=== PATIENT | female | born 1950 | race Caucasian/White ===

== ENCOUNTER 2024-05-26 11:11 | Outpatient (CLI) | payer MEDICARE, SELFPAY ==
--- NOTE | ~2024-05-26 | MR_ITS ---
MRI of the left knee Clinical history: Effusion Technique: Coronal proton density and proton density-weighted images, sagittal proton-density and T2 fat-sat images, and axial proton-density fat-saturated images were acquired. Findings: Anterior and posterior cruciate ligaments are intact. Medial collateral ligament and the la teral collateral ligament complex are intact. Popliteus tendon is intact. There is extensive complex tearing of the posterior horn and body of the medial meniscus. No lateral meniscal tear evident. There is extensive high-grade chondromalacia of the patellar apex extending to the medial facet. Ther e is high-grade chondromalacia extensive involving the medial femoral condyle and the medial aspect o f the medial tibial plateau. There is focal moderate chondral malacia the lateral joint line. Mild tr icompartment osteophyte formation present. Extensor mechanism is intact. Moderate to large joint effusion present. Small Austin cyst present. Impression: Extensive complex tearing of the posterior horn and body of medial meniscus. Moderate to advanced tricompartmental osteoarthritis, especially the medial compartment, as detailed above. Moderate to large joint effusion with small Austin's cyst. Reviewed, dictated and finalized at location . EY DIRECTOR Impression: Extensive complex tearing of the posterior horn and body of medial meniscus. Moderate to advanced tricompartmental osteoarthritis, especially the medial com partment, as detailed above. Moderate to large joint effusion with small Austin's cyst.
== END 2024-05-26 11:12 | disposition home or self-care (01) ==
PROVIDERS: PCP Physician Assistant Surgical; Visit Provider Physician Assistant Surgical
DX: M25.462 Effusion, left knee (principal); M17.12 Unilateral primary osteoarthritis, left knee; S83.232A Complex tear of medial meniscus, current injury, left knee, initial encounter; M71.22 Synovial cyst of popliteal space [Baker], left knee; X58.XXXA Exposure to other specified factors, initial encounter
CPT/HCPCS: 73721

== ENCOUNTER 2024-06-03 08:20 | Outpatient (CLI) | payer MEDICARE, SELFPAY ==
--- NOTE | ~2024-06-03 | XR_ITS ---
EXAMINATION: XR knee LT min 4V DATE: 06/03/2024 08:40 INDICATION: Unilateral primary osteoarthritis, left knee. TECHNIQUE: 4 views of left knee were obtained. COMPARISON: None. FINDINGS: Alignment is normal. No fracture. There is moderate osteoarthritis of medial compartment an d mild osteoarthritis of patellofemoral compartment. There is a small knee joint effusion. IMPRESSION: 1. Moderate left knee osteoarthritis. 2. Small left knee joint effusion. Reviewed, dictated and finalized at location A. [facility]
--- OUTSIDE RECORDS SUMMARY | 2024-06-03 08:47 | XMS_ITS | Clinical Summary ---
Author Organization [facility] Address [address], [place] [address] Phone Care Team Providers Care Coat Joiner Lockstitch Name Role Phone MARK MALDONADO MD Primary Care Provider [phone] Reason for Visit and Chief Complaint * PHONE CALL Problems Includes: Problems addressed during this encounter and other active Problems All Visits Onset Date Resolved Date Provider Condition S tatus Osteopenia 01/11/2014 CYNDY MOLINA NP-BC Active Last Documented On 12/25/2019 10:40AM ; [facility] Note: DEXA 12-22-2019 Tobacco Use 01/09/2013 CYNDY MOLINA NP-BC Active Last Documented On 3 8:16AM ; [facility] Plan of Treatment No Plan of Treatment Recorded Assessments Includes: Assessments from this encounter No Assessments Recorded Medical Equipment - Implanted Devices Includes: Current Devices No Medical Equipment Recorded Medications Includes: Medications discussed during this encounter and other current Medications No Medications Taken Medications Administered Includes: Administered Medications from this encounter No Administered Medications Recorded Results Includes: Results discussed during this encounter No Results Recorded For Specified Dates History of Present Illness Includes: History of Present Illness from this encounter No History of Present Illness Recorded Social History No Social History Recorded - Smoking Status Unknown Medical History Includes: Medical History addressed during this encounter No Medical History Recorded Family History Includes: Family History addressed during this encounter No Family History Recorded Review of Systems Includes: Review of Systems from this encounter No Review of Systems Recorded Mental Status Includes: Mental Status from this encounter No Mental Status Recorded Functional Status Includes: Functional Status from this encounter No Functional Status Recorded Physical Exam Includes: Physical Exam from this encounter No Physical Exam Recorded Allergies Includes: Active Allergies No Known Allergies Encounters Encounter Provider Location Date Check-In Time Check-Out Time Diagnosis * PHONE CALL CYNDY MOLINA [facility] 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
--- OUTSIDE RECORDS SUMMARY | 2024-06-03 08:47 | XMS_ITS | Clinical Summary ---
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 Name Role Phone MARK MALDONADO MD Primary Care Provider [phone] Reason for Visit and Chief Complaint gynecologic annual exam - The Chief Complaint is: Annual Problems Includes: Problems addressed during this encounter and other active Problems All Visits Onset Date Resolved Date Provider Condition S tatus Osteopenia 01/11/2014 CYNDY MOLINA NP-BC Active Last Documented On 12/25/2019 10:40AM ; [facility] Note: DEXA done 12-22-2019 Tobacco Use 01/09/2013 CYNDY MOLINA NP-BC Active Last Documented On 3 8:16AM ; [facility] Plan of Treatment - Follow-up visit 1 year or as needed - Last Documented On 12/25/2019 10:53AM ; [facility] - Clinical summary provided to patient - Last Documented On 12/25/2019 10:53AM ; [facility] Pending Tests Order Diagnosis Results Due Ordering Erika rocha In office procedures - *Clia Waived Labs *FOBT* Fecal Occult Blood Test Encounter for screening for malignant neoplasm of rectum 01/08/20 CYNDY MOLINA NP-BC Last Documented On 1 4:15PM ; [facility] Instructions to patient Instructions for patient : B reast Self Exam discussed Last Documented On 0 10:34AM ; [facility] Lose weight Last Documented On 0 10:35AM ; [facility] Colonoscopy Handout given to patient Last Documented On 0 10:35AM ; [facility] Education and Decision Aids were provided during visit for: Patient Education: Daily mekhi cium and vitamin D Last Documented On 0 10:34AM ; [facility] Patient Education: weight be aring exercise Last Documented On 0 10:34AM ; [facility] Assessments Includes: Assessments from this encounter Findings - NORMAL FEMALE EXAM [Z01.419 - Encounter for gynecological examination (general) (routine) without abnormal findings] - Last Documented On 12/25/2019 10:53AM ; [facility] - Screening Malig. Neoplasm Rectum [Z12.12 - Encounter for screening for malignant neoplasm of rectum] - Last Documented On 12/25/2019 10:53AM ; [facility] Instructions Includes: Instructions from this encounter Instructions to patient Instructions for patient : B reast Self Exam discussed Last Documented On 0 10:34AM ; [facility] Lose weight Last Documented On 0 10:35AM ; [facility] Colonoscopy Handout given to patient Last Documented On 0 10:35AM ; [facility] Education and Decision Aids were provided during visit for: Patient Education: Daily mekhi cium and vitamin D Last Documented On 0 10:34AM ; [facility] Patient Education: weight be aring exercise Last Documented On 0 10:34AM ; [facility] Medical Equipment - Implanted Devices Includes: Current Devices No Medical Equipment Recorded Medications Includes: Medications discussed during this encounter and other current Medications Discontinued / Stopped on this date on 12/12/2015 Estrace 0.1 MG/GM Cream Provider: Diagnosis: Last Documented On 0 10:39AM By TIMOTEO ROSAS ; [facility] Medications Administered Includes: Administered Medications from this encounter No Administered Medications Recorded Vital Signs Includes: Vital Signs from this encounter Vital Name 12/25/2019 10:37A 12/25/2019 10: 31A Blood Pressure Sitting L 118/66 118/60 BP Cuff Size Regular Regular Temp-Oral (F) 97.9 Height (in) 65 Weight (lb) 177 Body Mass Index (kg/m2) 29.5 Body Surface Area (m2) 1.9 Last Documented: On 12/25/2019 10:37A M ; [facility] On 12/25/2019 10:35AM ; [facility] Results Includes: Results discussed during this encounter No Results Recorded For Specified Dates History of Present Illness Includes: History of Present Illness from this encounter DALE DENNY is a 69 year old female. - Allergy list reviewed - Medication reconciliation performed - Medication list reviewed - PRIMARY CARE PROVIDER : Dr Hoff Social History Description Last Updated Alcohol use occ 12/25/2019 Last Documented On 0 10:53AM ; [facility] Cigarette smoking 12/25/2019 Last Documented On 0 10:53AM ; [facility] Not using drugs 12/25/2019 Last Documented On 0 10:53AM ; [facility] Smoking status : Current some day smoker 12/25/2019 Last Documented On 0 10:53AM ; [facility] Social history unchanged 02/08/2017 Last Documented On 0 10:29AM ; [facility] Procedures and Surgical History Includes: Procedures from this encounter Procedures Code Diagnosis Performing Provider Service L ocation Service Date low fat diet Last Documented On 0 10:35AM ; [facility] Preventive Medicine Services (medicare pt) G0101 Last Documented On 0 10:35AM ; [facility] Pap smear done 20320 Last Documented On 0 10:35AM ; [facility] fecal occult blood test was negative 95910 Last Documented On 0 10:34AM ; [facility] Cervical Pap Smear performed Q0091 Last Documented On 0 10:35AM ; [facility] Surgical History Last Updated Surgical / procedural history rt Carpal Tunnel Surgery 01/11/2014 Last Documented On 0 10:29AM ; [facility] History of tubal ligation 01/09/2013 Last Documented On 0 10:29AM ; [facility] Medical History Includes: Medical History addressed during this encounter Description Last Updated Sexually active 12/25/2019 Last Documented On 0 10:53AM ; [facility] No recent change in medical history 07/2019 Last Documented On 0 10:53AM ; [facility] History of a DXA of the late ral lumbar spine was performed 12/22/[address] Hoff at the end of the month to talk about rx for the thining of her bones 12/25/2019 Last Documented On 0 10:53AM ; [facility] History of complete colonosc opy Dr Hoff ordered a colongaurd has not recieved it yet 12/25/2019 Last Documented On 0 10:53AM ; [facility] History of screening mammogram was perfo rmed 2019 [facility] 12/25/2019 Last Documented On 0 10:53AM ; [facility] History of Pap smear done 02/08/201707/2019 Last Documented On 0 10:53AM ; [facility] Result: normal 12/25/2019 Last Documented On 0 10:53AM ; [facility] Result: normal 12/25/2019 Last Documented On 0 10:53AM ; [facility] LMP: 199203/27/2011 Last Documented On 0 10:29AM ; [facility] Status post tubal ligation 1985 03/27/20 11 Last Documented On 0 10:29AM ; [facility] 3 03/27/2011 Last Documented On 0 10:29AM ; [facility] Para 3 03/27/2011 Last Documented On 0 10:29AM ; [facility] History of menopause 03/24/2010 Last Documented On 0 10:29AM ; [facility] Family History Includes: Family History addressed during this encounter Description Last Updated Family history unchanged 12/25/2019 Last Documented On 0 10:53AM ; [facility] Maternal history of hypertension mother late in life 12/25/2019 Last Documented On 0 10:53AM ; [facility] Paternal history of diabetes mellitus fa ther at age 84 12/25/2019 Last Documented On 0 10:53AM ; [facility] father at age 85 pancreatic ca 4 Last Documented On 0 10:29AM ; [facility] Spouse name: Matt 01/09/2013 Last Documented On 0 10:29AM ; [facility] Family history of Cancer 06/27/2009 Last Documented On 0 10:29AM ; [facility] Family history of thyroid disease 2009 Last Documented On 0 10:29AM ; [facility] Review of Systems Includes: Review of Systems from this encounter Gastrointestinal: No pelvic pain. Genitourinary: No postmenopausal bleeding. No vaginal discharge. 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 Neoplasm Rectum,Normal Female Exam Insurance Includes: Active Insurance Policies Plan Name Member ID Group # Subscriber Relationship Effect jeremiah Dates 1 - MEDICARE PART A CLAIMS/NGS [id number] ELVA Kraus 2 - [employer] [id number] PLAN G ELVA Kraus Clinical Notes Includes: Clinical Notes from this encounter No Clinical Notes Recorded
--- OUTSIDE RECORDS SUMMARY | 2024-06-03 08:47 | XMS_ITS | Encounter Summary ---
Author Organization [facility] Address [address] [place] [address] Phone Care Team Providers Care Planning Specialist Name Role Phone Kavya Davis MD Primary Care Provider Korin Coughlin Primary Care Provider + Reason for Visit * Reason Onset Date Comments Referral 02/01/2023 Encounter Details Date Type Department Care Team (Late st Contact Info) Description 02/01/2023 Telephone [facility]erral [facility] [address] [place] [address] Kavya Davis MD [address] [place] [address] Referral Social History Tobacco Use Types Packs/Day Years Used Date Smoking Tobacco: Former Cigarettes Q uit: 2020 Smokeless Tobacco: Never Comments:socially Alcohol Use Standard Drinks/Week Comments Yes 0 (1 standard drink = 0.6 oz pure alcohol) Likes to have a drink once in a while after PHQ-2 Answer Date Recorded Total Score - Questions 1-9 0 04/23 Education Answer Date Recorded What is the highest level of school you have completed or the highest degree you have received? Some college, no degree 07/05/2022 Sexually Active Control Partners Comments Yes Male Comments No Sex and Gender Information Value Date Recorded Sex Assigned at Not on file Legal Sex Female 10:30 PM CDT Gender Identity Not on file Sexual Orientation Not on file documented as of this encounter Miscellaneous Notes * Telephone Encounter - Sonja Fernandez RMA - 02/05/2023 1:31 PM CDT Spoke with patient, she states she has already heard from them for referral. 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 BACKGROUND: Referral was processed. ASSESSMENT: Request for provider review due to the following reason(s): Patient refusal or unable to contact patient. RECOMMENDATION: Based on the above information the provider has the following option(s): This referral has been processed & faxed. However, we were unable to contact the patient regarding location information. Patient did not read the Fylet message nor did they respond to voice messages. Thank you. Leandra Garcia [facility] - Referrals opt 7 documented in this encounter Plan of Treatment Upcoming Encounters Date Type Department Care Team (Late st Contact Info) Description 09/04/2024 9:15 AM CDT Office Visit [facility] - Family [facility] [address] [place] [address] Korin Coughlin, PAC [address] [place] [address] documented as of this encounter Visit Diagnoses Not on filedocumented in this encounter Additional Health Concerns Assessment Noted Time PHQ-9 Depression Total Score: 0 08/31/19 21 2:00 PM CDT documented as of this encounter Care Teams Planning Specialist Relationship Specialty Start Date End Date Kavya Davis MD [address] [place] [address] PCP - General Family Medicine 12/23/18 09/03/23 Korin Coughlin PAC [address] [place] [address] PCP - General Physician Personnel Director 09/04/23 documented as of this encounter
--- OUTSIDE RECORDS SUMMARY | 2024-06-03 08:47 | XMS_ITS | Clinical Summary ---
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 Name Role Phone MARK MALDONADO MD Primary Care Provider [phone] Reason for Visit and Chief Complaint gynecologic annual exam - The Chief Complaint is: Annual Problems Includes: Problems addressed during this encounter and other active Problems All Visits Onset Date Resolved Date Provider Condition S tatus Osteopenia 01/11/2014 CYNDY MOLINA [facility] Active Last Documented On 12/25/2019 10:40AM ; [facility] Note: DEXA done 12-22-2019 Tobacco Use 01/09/2013 CYNDY MOLINA [facility] Active Last Documented On 3 8:16AM ; [facility] Plan of Treatment - Follow-up visit 1 year or as needed - Last Documented On 02/02/2016 3:53PM ; [facility] - Clinical summary provided to patient - Last Documented On 02/02/2016 3:53PM ; [facility] Had calcium and alk. phos. with pcp - see results in chart. Will have vitamin D and PTH today to complete dexa labs. - Last Documented On 02/02/2016 3:53PM ; [facility] Instructions to patient Instructions for patient : B reast Self Exam discussed Last Documented On 6 3:22PM ; [facility] Lose weight Last Documented On 6 3:23PM ; [facility] Colonoscopy Handout given to patient Last Documented On 6 3:23PM ; [facility] Education and Decision Aids were provided during visit for: Patient Education: Daily mekhi cium and vitamin D Last Documented On 6 3:22PM ; [facility] Patient Education: weight be aring exercise Last Documented On 6 3:22PM ; [facility] Smoking cessation advised Last Documented On 6 3:23PM ; [facility] Assessments Includes: Assessments from this encounter Findings - NORMAL FEMALE EXAM - Last Documented On 02/02/2016 3:53PM ; [facility] - Screening Malig. Neoplasm Rectum - Last Documented On 02/02/2016 3:53PM ; [facility] Instructions Includes: Instructions from this encounter Instructions to patient Instructions for patient : B reast Self Exam discussed Last Documented On 6 3:22PM ; [facility] Lose weight Last Documented On 6 3:23PM ; [facility] Colonoscopy Handout given to patient Last Documented On 6 3:23PM ; [facility] Education and Decision Aids were provided during visit for: Patient Education: Daily mekhi cium and vitamin D Last Documented On 6 3:22PM ; [facility] Patient Education: weight be aring exercise Last Documented On 6 3:22PM ; [facility] Smoking cessation advised Last Documented On 6 3:23PM ; [facility] Medical Equipment - Implanted Devices Includes: Current Devices No Medical Equipment Recorded Medications Includes: Medications discussed during this encounter and other current Medications No Medications Taken Medications Administered Includes: Administered Medications from this encounter No Administered Medications Recorded Vital Signs Includes: Vital Signs from this encounter Vital Name 02/02/2016 03:27P Blood Pressure Sitting L 150/70 BP Cuff Size Regular Height (in) 64 Weight (lb) 176 Body Mass Index (kg/m2) 30.2 Body Surface Area (m2) 1.9 Last Documented: On 02/02/2016 3:29PM ; [facility] Results Includes: Results discussed during this encounter No Results Recorded For Specified Dates History of Present Illness Includes: History of Present Illness from this encounter DALE DENNY is a 65 year old female. - Medication list reviewed - PRIMARY CARE PROVIDER : Dr Stokes - Menopause has occurred Social History Description Last Updated In monogamous relationship 02/02/2016 Last Documented On 6 3:53PM ; [facility] Not using alcohol 02/02/2016 Last Documented On 6 3:53PM ; [facility] Not using drugs 02/02/2016 Last Documented On 6 3:53PM ; [facility] Sexually active with 1 partners in the l ast year 02/02/2016 Last Documented On 6 3:53PM ; [facility] Non-smoker 02/02/2016 Last Documented On 6 3:53PM ; [facility] Social history unchanged 02/02/2016 Last Documented On 6 3:53PM ; [facility] Smoking status : Current some day smoker 02/02/2016 Last Documented On 6 3:53PM ; [facility] Procedures and Surgical History Includes: Procedures from this encounter Procedures Code Diagnosis Performing Provider Service L ocation Service Date low fat diet Last Documented On 6 3:23PM ; [facility] fecal occult blood test was negative 41509 Last Documented On 6 3:22PM ; [facility] normal history of Pap smear of cervix Last Documented On 6 3:40PM ; [facility] Cervical Pap Smear performed [id number] Last Documented On 6 3:23PM ; [facility] Surgical History Last Updated Surgical / procedural history rt Carpal Tunnel Surgery 01/11/2014 Last Documented On 6 3:26PM ; [facility] History of tubal ligation 01/09/2013 Last Documented On 6 3:26PM ; [facility] Medical History Includes: Medical History addressed during this encounter Description Last Updated History of complete colonosc opy Pt never had one because she refused but she said this year she told Dr Stokes she would call her insurance to see who she can use and have one done 02/02/2016 Last Documented On 6 3:53PM ; [facility] Vaginal delivery 02/02/2016 Last Documented On 6 3:53PM ; [facility] No recent change in medical history 01/20 Last Documented On 6 3:53PM ; [facility] History of a DEXA of the lat eral lumbar spine was performed 07/19/2015 osteopenia-Insurance will not pay for blood work because dx 02/02/2016 Last Documented On 6 3:53PM ; [facility] Sexually active 02/02/2016 Last Documented On 6 3:53PM ; [facility] History of Pap smear done 01/14/201501/20 Last Documented On 6 3:53PM ; [facility] History of screening mammogram was perfo rmed 07/21/2015 02/02/2016 Last Documented On 6 3:53PM ; [facility] Result: normal 02/02/2016 Last Documented On 6 3:53PM ; [facility] Result: normal 02/02/2016 Last Documented On 6 3:53PM ; [facility] LMP: 1993 03/27/2011 Last Documented On 6 3:26PM ; [facility] Status post tubal ligation 1985 03/27/20 Last Documented On 6 3:26PM ; [facility] 3 03/27/2011 Last Documented On 6 3:26PM ; [facility] Para 3 03/27/2011 Last Documented On 6 3:26PM ; [facility] History of menopause 03/24/2010 Last Documented On 6 3:26PM ; [facility] Family History Includes: Family History addressed during this encounter Description Last Updated Family history unchanged 02/02/2016 Last Documented On 6 3:53PM ; [facility] Maternal history of hypertension mother late in life 02/02/2016 Last Documented On 6 3:53PM ; [facility] father at age 85 pancreatic ca 4 Last Documented On 6 3:26PM ; [facility] Spouse name: Matt 01/09/2013 Last Documented On 6 3:26PM ; [facility] Family history of Cancer 06/27/2009 Last Documented On 6 3:26PM ; [facility] Family history of thyroid disease 2009 Last Documented On 6 3:26PM ; [facility] Review of Systems Includes: Review of Systems [...] Location Date Check-In Time Check-Out Time Diagnosis ANNUAL MEDICAL AIDE EXAM CYNDY MOLINA [facility]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 Neoplasm Rectum,Normal Female Exam Insurance Includes: Active Insurance Policies Plan Name Member ID Group # Subscriber Relationship Effect jeremiah Dates 1 - MEDICARE PART A CLAIMS/NGS [id number] ELVA Kraus 2 - [employer] [id number] PLAN G ELVA Kraus Clinical Notes Includes: Clinical Notes from this encounter No Clinical Notes Recorded
--- OUTSIDE RECORDS SUMMARY | 2024-06-03 08:48 | XMS_ITS | Clinical Summary ---
Author Organization [facility] Address [address] [place] [address] Care Team Providers Care Automation And Control Engineer Name Role Phone Christina Stokes MD Primary Care Provider [phone] Allergies No known active allergies Medications lactobacillus comb no.10 (PROBIOTIC) 20 billion cell capsule 0 0 07/12/2016 Active estradiol (ESTRACE) 0.01 % (0.1 mg/gram) vaginal cream insert (1G) by vaginal route twice weekly. 0 0 08/17/2010 Active multivitamin capsule take 1 capsule by oral route every day 0 08/17/2010 Active Active Problems Problem Noted Date Diagnosed Date Hypertension 04/11/2016 Overview (07/27/2016): HTN Osteopenia 01/09/2016 Overview (07/26/2016): Osteopenia Immunizations Name Administration Dates Next Due Influenza, Trivalent, IM (MDV) 01/20/2013,2012 Tdap 04/22/2013 Surgical History Surgery Date Site/Laterality Comments CARPAL TUNNEL RELEASE 2000 Carpal tunnel release Medical History Medical History Date Comments Hx Other Medical 01-rn gynecology Hx Other Medical lumbar disc pro trusions Hx Other Medical cervical disc p rotrusions Hx Other Medical 3 C-sections Hx Other Medical Tonsillectomy Family History Medical History Relation Name Comments Other Brother 1 Irene Alive and well; Other Brother 2 Matt Alive and well; Other Brother 3 irene tonsillar cance r; Diabetes Father Diabetes mellit us; Pancreatic cancer Father Cancer -pa ncreatic; Dementia Mother Dementia; Other Mother Ischemic colon; /hepatitis C/liver disease; /unknown cause-hospice; Cause of : unknown cause-hospice Thyroid disease Mother thyroid diso rder; Hypertension Other Family history of Hypertension; Relation Name Status Comments Brother 1 Irene Alive Brother 2 Matt Alive Brother 3 irene Father Mother Other Social History Tobacco Use Types Packs/Day Years Used Date Smoking Tobacco: Light Smoker Cigarettes Smokeless Tobacco: Never Tobacco Cessation:Ready to Q uit: No Comments:social 4 cigs per week. Alcohol Use Standard Drinks/Week Comments Yes 0 (1 standard drink = 0.6 oz pur e alcohol) 1 glass wine nightly. 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[employer] Not on file Not on file Not on file Obstetrics History Last Filed Vital Signs Vital Sign Reading Time Taken Comments Blood Pressure 126/80 03/07/2017 9:41 AM ANALYTICS LEADER Pulse 68 03/07/2017 9:13 AM ANALYTICS LEADER Temperature - - Respiratory Rate 20 03/07/2017 9:13 AM ANALYTICS LEADER Oxygen Saturation - - Inhaled Oxygen Concentration - - Weight 77.1 kg (170 lb) 03/07/2017 9:13 AM ANALYTICS LEADER Height 162.6 cm (5' 4 ) 03/07/2017 9:13 AM ANALYTICS LEADER Body Mass Index 29.18 03/07/2017 9:13 AM ANALYTICS LEADER Plan of Treatment Not on file Insurance GI Track [facility] Care Teams Automation And Control Engineer Relationship Specialty Start Date End Date Christina Stokes MD [address] [employer] [place] [address] PCP - General 07/20/16
--- OUTSIDE RECORDS SUMMARY | 2024-06-03 08:48 | XMS_ITS | Clinical Summary ---
Author Organization [facility] Address [address] [place] [address] Phone Care Team Providers Care Analytical Engineer Name Role Phone Korin Coughlin Primary Care Provider + Allergies No known active allergies Medications Vitamin D, Ergocalciferol, [address] units Capsule Take 50,000 Units by mouth once a week. 12 Capsule 09/17/2023 Active alendronate (FOSAMAX) 70 MG TabletIndication s:Low bone mass Take 1 Tablet by mouth every 7 days. 12 Tablet 3 12/26/2023 Active Active Problems Problem Noted Date Diagnosed Date Low bone mass 12/26/2023 Vitamin D deficiency 12/26/2023 Immunizations Immunization Administration Dates Next Due Covid-19, Mrna, Lnp-s, PF, 1 00 mcg/0.5 mL Dose (Moderna) 08/10/2020,07/13/2020 Influenza Vaccine 01/20/2013,05/02/2012 Influenza Vaccine, Quadrivalent, PF 01/18/2020 Pneumococcal Vaccine - 13 Valent 04/30/2019 Pneumococcal conjugate PCV20 , polysaccharide [id number] conjugate, adjuvant, PF 09/04/2023 TDAP Vaccine 07/09/2013,04/22/2013 Family History Medical History Relation Name Comments Cancer Brother 1 No Known Problems Brother 2 Cancer Father Emphysema Maternal Grandfather Dementia Maternal Grandmother Jewell dunn started about age 80 Dementia Mother did not have un til age 90 Liver Disease Mother Thyroid Disease Mother No Known Problems Paternal Grandfather Rheumatoid Arthritis Paternal Grandmother Relation Name Status Comments Brother 1 Alive Brother 2 Alive Father Maternal Grandfather Maternal Grandmother Mother Paternal Grandfather Paternal Grandmother Social History Tobacco Use Types Packs/Day Years Used Date Smoking Tobacco: Former Cigarettes Q uit: 2020 Smokeless Tobacco: Never Tobacco Cessation:Counseling Given: Not Answered Comments:socially Alcohol Use Standard Drinks/Week Comments Yes 0 (1 standard drink = 0.6 oz pure alcohol) Likes to have a drink once in a while after [facility] Utilities Answer Date Recorded In the past 12 months has e [employer], gas, oil, or water [employer] threatened to shut off services in your home? No 09/04/2023 Social Connection and Isolat ion Panel [NHANES] Answer Date Recorded In a typical week, how many times do you talk on the phone with family, friends, or neighbors? More than three times a week 09/04/2023 How often do you get togethe r with friends or relatives? Twice a week 09/04/2023 How often do you attend chur ch or buddhism services? More than 4 times per year 09/04/2023 Do you belong to any clubs o r organizations such as rastafarian groups, unions, fraternal or athletic groups, or school groups? No 09/04/2023 How often do you attend meet ings of the clubs or organizations you belong to? 1 to 4 times per year 09/04/2023 Are you , , di vorced, , never , or living with a partner? 09/04/2023 AUDIT-C Answer Date Recorded Q1: How often do you have a drink containing alc ohol? 2-3 times a week 09/04/2023 Q2: How many drinks containi ng alcohol do you have on a typical day when you are drinking? 1 or 2 09/04/2023 Q3: How often do you have si x or more drinks on one occasion? Less than monthly 09/04/2023 Overall Financial Resource Strain (CARDIA) Answe r Date Recorded How hard is it for you to pa y for the very basics like food, housing, medical care, and heating? Not very hard 09/04/2023 PHQ-2 Answer Date Recorded Total Score - Questions 1-9 0 08/20 [facility] of Occupat ional Health - Occupational Stress Questionnaire Answer Date Recorded Do you feel stress - tense, restless, nervous, or anxious, or unable to sleep at night because your mind is troubled all the time - these days? Only a little 09/04/2023 Exercise Vital Sign Answer Date Recorde d On average, how many days pe r week do you engage in moderate to strenuous exercise (like a brisk walk)? 2 days 09/04/2023 On average, how many minutes do you engage in exercise at this level? 20 min 09/04/2023 Hunger Vital Sign Answer Date Recorded Within the past 12 months, y ou worried that your food would run out before you got the money to buy more. Never true 09/04/19 24 Within the past 12 months, t he food you bought just didn't last and you didn't have money to get more. Never true 09/04/2023 PRAPARE - Transportation Answer Date Re corded In the past 12 months, has l ack of transportation kept you from medical appointments or from getting medications? No 08/20 In the past 12 months, has l ack of transportation kept you from meetings, work, or from getting things needed for daily living? No 09/04/2023 Housing Stability Vital Sign Answer Andrey e Recorded In the last 12 months, was t here a time when you were not able to pay the mortgage or rent on time? No 09/04/2023 In the last 12 months, how many places have you lived? 1 09/04/2023 In the last 12 months, was t here a time when you did not have a steady place to sleep or slept in a group home (including now)? No 09/04/2023 Education Answer Date Recorded What is the [...] on file Sexual Orientation Not on file Last Filed Vital Signs Vital Sign Reading Time Taken Comments Blood Pressure 128/84 12/26/2023 8:24 AM CDT Pulse 72 12/26/2023 8:24 AM CDT Temperature 36 C (96.8 F) 12/26/2023 8:24 AM CDT Respiratory Rate 18 12/26/2023 8:24 AM CDT Oxygen Saturation 99% 12/26/2023 8:24 AM CDT Inhaled Oxygen Concentration - - Weight 78.9 kg (174 lb) 12/26/2023 8:24 AM CDT Height 162.6 cm (5' 4 ) 12/26/2023 8:24 AM CDT Body Mass Index 29.87 12/26/2023 8:24 AM CDT Plan of Treatment Upcoming Encounters Date Type Department Care Team (Late st Contact Info) Description 09/04/2024 9:15 AM CDT Office Visit [facility] [address] [place] [address] Korin Coughlin, PAC [address] [place] [address] Health Maintenance Due Date Last Done Comments Colonoscopy 1997 Immunochemical Fecal Occult Blood 2002 Zoster Immunization (1 of 2) 2002 Td Immunization Every 10 Years (Adults With 1 Tdap) 07/10/2023 07/09/2013, 04/22/2013 Influenza Immunization (#1) 12/22/202312/22, 01/20/2013, 05/02/2012 SARS-COV-2 Immunization ( season) 2024 01/07/2024, 08/10/2020, 07/13/2020 Mammogram 09/16/2025 09/17/2023, 01/20, 12/30/2018, Additional history exists DEXA Bone Density 12/15/2025 12/16/2023, 12/22/2019 Cologuard 09/18/2026 09/19/2023, 05/25/2020 Colorectal Cancer Screening 09/18/2026 Respiratory Syncytial Virus (RSV) Immunization (Adult) (1 - 1-dose 75+ series) 11/26/2027 DTaP/Tdap/Td Immunization Discontinued 07/09/2013, 04/2013 Hepatitis C Virus (HCV) Screening Completed 01/09/2017 Pneumococcal Immunization (50+ years) Completed 09/04/2023, 04/30/2019 Pneumococcal Immunization Combined Discontinued 09/04/2023, 04/30/2019 Hepatitis B Immunization Aged Out No longer eligible based on patient's age to complete this topic Meningococcal Immunization (ACWY) Aged Out No longer eligible based on patient's age to complete this topic Rotavirus Immunization Aged Out No lo nger eligible based on patient's age to complete this topic Procedures Procedure Name Priority Date/Time Associated Diagnosis Comments [facility] BONE DENSITOMETRY AXIAL SKELETON Routine 12/16/2023 10:14 AM CDT Low bone mass Post-menopausal COLOGUARD Routine 09/19/2023 7:45 AM CDT Screening for colon cancer [facility] SCREENING BILATERAL DIGITAL W CAD W RAMY Routine 09/17/2023 9:16 AM CDT Visit for screening mammogram HEPATITIS C ANTIBODY Routine 01/09/2017 from Last 3 Months or Most Recently Relevant to Health Maintenance Results * [facility] BONE DENSITOMETRY AXIAL SKELETON (12/16/2023 10:14 AM CDT) Anatomical Region Laterality Modality BODY N/A Computed Radiogr aphy 12/16/2023 4:44 PM CDT Impressions 12/16/2023 4:47 PM CDT IMPRESSION: Low Bone Mass. REFERENCE: Bone mineral density: T-Score: Normal (T-score above or = -1.0) Low bone mass (T-score between -1.0 and -2.5) replaces the previously used term osteopenia Osteoporosis (T-score = or below -2.5) Z-Score: Within the expected range for age (Z-score above -2.0) Below the expected range for age (Z-score is -2.0 or below) Please see below follow up recommendations. Medical evaluation for secondary causes of low bone mineral density may be appropriate. FRAX is a World Health Organization validated fracture risk assessment tool that calculates a person's 10 year probability of a major osteoporosis related fracture and hip fracture. According to the National Osteoporosis Foundation guidelines, postmenopausal women and men age 50 or older with low bone mass and a 10 year probability of a major osteoporosis related fracture = or greater than 20% or a 10 year probability of a hip fracture = or greater than 3% should be considered for pharmacological treatment for the prevention of osteoporosis. 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 Femoral neck BMD is 0.767 g/cm2 T-score is -2.0 FRAX: 10 year risk for a major osteoporotic fracture is 20.3 %, 10 year risk for a hip fracture is 8.9 % THIS IS AN ELECTRONICALLY VERIFIED FINAL REPORT 12/16/2023 4:44 PM - Electronically signed by Mike Marin M.D. 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 Femoral neck BMD is 0.767 g/cm2 T-score is -2.0 FRAX: 10 year risk for a major osteoporotic fracture is 20.3 %, 10 year risk for a hip fracture is 8.9 % THIS IS AN ELECTRONICALLY VERIFIED FINAL REPORT 12/16/2023 4:44 PM - Electronically signed by Mike Marin M.D. MF: ADELINE Report ID: [id number] Reading Location: [place] [address] IMPRESSION: Low Bone Mass. REFERENCE: Bone mineral density: T-Score: Normal (T-score above or = -1.0) Low bone mass (T-score between -1.0 and -2.5) replaces the previously used term osteopenia Osteoporosis (T-score = or below -2.5) Z-Score: Within the expected range for age (Z-score above -2.0) Below the expected range for age (Z-score is -2.0 or below) Please see below follow up recommendations. Medical evaluation for secondary causes of low bone mineral density may be appropriate. FRAX is a World Health Organization validated fracture risk assessment tool that calculates a person's 10 year probability of a major osteoporosis related fracture and hip fracture. According to the National Osteoporosis Foundation guidelines, postmenopausal women and men age 50 or older with low bone mass and a 10 year probability of a major osteoporosis related fracture = or greater than 20% or a 10 year probability of a hip fracture = or greater than 3% should be considered for pharmacological treatment for the prevention of osteoporosis. For further information, including treatment recommendations, please refer to the 2019 ISCD Official Positions (http://www.iscd.org) and the NOF's Clinician's Guide to Prevention and Treatment of Osteoporosis (http://www.nof.org/professionals/clinical-guidelines) Korin Coughlin PAC IMG DEXA ORDERABLES Patricia l Result * COLOGUARD (09/19/2023 7:45 AM CDT) Cologuard Negative Negative [facility] Comment: NEGATIVE TEST RESULT. A negative Cologuard result indicates a low likelihood that a colorectal cancer (CRC) or advanced adenoma (adenomatous polyps with more advanced pre-malignant features) is present. The chance that a person with a negative Cologuard test has a colorectal cancer is less than 1 in 1500 (negative predictive value >99.9%) or has an advanced adenoma is less than 5.3% (negative predictive value 94.7%). These data are based on a prospective cross-sectional study of 10,000 individuals at average risk for colorectal cancer who were screened with both Cologuard and colonoscopy. (Nga Gilmore. et al, N Engl J Med 2014;370(14):5707-0755) The normal value (reference range) for this assay is negative. COLOGUARD RE-SCREENING RECOMMENDATION: Periodic colorectal cancer screening is an important part of preventive healthcare for asymptomatic individuals at average risk for colorectal cancer. Following a negative Cologuard result, the [place] [employer] Society and U.S. Multi-Society Task Force screening guidelines recommend a Cologuard re-screening interval of 3 years. References: [place] [employer] Guideline for Colorectal Cancer Screening: https://www.cancer.org/cancer/avnyv-bjqgfl-knttol/igwsmkpst-bkrlskivt-pzdqzfb/ acs-recommendations.html.; Marcio WHITING, Chance MOLINA, Kraig De La TorreK, Colorectal Cancer Screening: Recommendations for Physicians and Patients from the U.S. Multi-Society Task Force on Colorectal Cancer Screening , Am J Gastroenterology 2017; 112:7706-6126. TEST DESCRIPTION: Composite algorithmic analysis of stool DNA-biomarkers with hemoglobin immunoassay. Quantitative values of individual biomarkers are not reportable and are not associated with individual biomarker result reference ranges. Cologuard is intended for colorectal cancer screening of adults of either sex, 45 years or older, who are at average-risk for colorectal cancer (CRC). Cologuard has been approved for use by the U.S. FDA. The performance of Cologuard was established in a cross sectional study of average-risk adults aged 50-84. Cologuard performance in patients ages 45 to 49 years was estimated by sub-group analysis of near-age groups. Colonoscopies performed for a positive result may find as the most clinically significant lesion: colorectal cancer [4.0%], advanced adenoma (including sessile serrated polyps greater than or equal to 1cm diameter) [20%] or non- advanced adenoma [31%]; or no colorectal neoplasia [45%]. These estimates are derived from a prospective cross-sectional screening study of 10,000 individuals at average risk for colorectal cancer who were screened with both Cologuard and colonoscopy. (Nga Gilmore. et al, N Engl J Med 2014;370(14):9092-5399.) Cologuard may produce a false negative or false positive result (no colorectal cancer or precancerous polyp present at colonoscopy follow up). A negative Cologuard test result does not guarantee the absence of CRC or advanced adenoma (pre-cancer). The current Cologuard screening interval is every 3 years. ([place] [employer] and U.S. Multi-Society Task Force). Cologuard performance data in a 10,000 patient pivotal study using colonoscopy as the reference method can be accessed at the following location: www.[employer]/results. Additional description of the Cologuard test process, warnings and precautions can be found at www.cologuard.com. Stool 09/19/2023 7:45 AM CDT 09/20/2023 9:54 AM CDT Korin Coughlin PAC BODY FLUIDS & STOOLS ORD ERABLES Final Result [facility] [address] [place] [address], [facility] [address] [place] [address] * [facility] SCREENING BILATERAL DIGITAL W CAD W RAMY (09/17/2023 9:16 AM CDT) Anatomical Region Laterality Modality breast Bilateral Mammography 09/17/2023 9:12 AM CDT Narrative 09/18/2023 10:53 AM CDT - [facility] SCREENING BILATERAL DIGITAL W CAD W RAMY BILATERAL DIGITAL SCREENING MAMMOGRAM 3D/2D WITH CAD WITH MEDIOLATERAL OBLIQUE CRANIOCAUDAL: 09/17/2023 The study was acquired using digital technology and interpreted from soft copy. Current study was also evaluated with ICAD version 7.2. 2D digital mammographic views, as well as 3D digital tomosynthesis were performed in the CC and MLO projections. CLINICAL: Routine screening. Patient has no complaints. No personal history of cancer. Maternal aunt had breast cancer. COMPARISONS: Comparison is made to exams dated: 02/08/2020, 12/30/2018 [facility], and 07/21/2015 [facility]. BREAST TISSUE:There are scattered fibroglandular densities in both breasts. FINDINGS: There are benign vascular calcifications in both breasts. No significant masses, calcifications, or other findings are seen in either breast. There has been no significant interval change. IMPRESSION: BI-RAD 2 BENIGN There is no mammographic evidence of malignancy. A 1 year screening mammogram is recommended. A letter will be sent to the patient with these results. The patient will be entered into a reminder system with a target due date of 1 year for her next screening exam. Electronically signed by: Sharri gonzáles/fareed:09/17/2023 17:51:14 Instructional Technology Coordinator(s): RT Tricia(R)(M), [facility] letter sent: Normal Exam Reading location: [facility] BI-RADS: 2 Benign Procedure Note Sharri Sykes MD - 09/18/2023 - [facility] SCREENING BILATERAL DIGITAL W CAD W RAMY BILATERAL DIGITAL SCREENING MAMMOGRAM 3D/2D WITH CAD WITH MEDIOLATERAL OBLIQUE CRANIOCAUDAL: 09/17/2023 The study was acquired using digital technology and interpreted from soft copy. Current study was also evaluated with ICAD version 7.2. 2D digital mammographic views, as well as 3D digital tomosynthesis were performed in the CC and MLO projections. CLINICAL: Routine screening. Patient has no complaints. No personal history of cancer. Maternal aunt had breast cancer. COMPARISONS: Comparison is made to exams dated: 02/08/2020, 12/30/2018 [facility], and 07/21/2015 [facility]. BREAST TISSUE:There are scattered fibroglandular densities in both breasts. FINDINGS: There are benign vascular calcifications in both breasts. No significant masses, calcifications, or other findings are seen in either breast. There has been no significant interval change. IMPRESSION: BI-RAD 2 BENIGN There is no mammographic evidence of malignancy. A 1 year screening mammogram is recommended. A letter will be sent to the patient with these results. The patient will be entered into a reminder system with a target due date of 1 year for her next screening exam. Electronically signed by: Sharri gonzáles/fareed:09/17/2023 17:51:14 Instructional Technology Coordinator(s): RT Tricia(R)(M), [facility] letter sent: Normal Exam Reading location: [facility] BI-RADS: 2 Benign us Kavya Davis MD IMG MAMMO ORDERABLES Final Result * HEPATITIS C ANTIBODY (01/09/2017) Blood specimen (specimen) us Not On File Provider CHEMISTRY ORDERABLES Final Result from Last 3 Months or Most Recently Relevant to Health Maintenance Insurance MEDICARE Care Teams Analytical Engineer Relationship Specialty Start Date End Date Korin Coughlin [facility] [address] [place] [address] PCP - General Physician Registered Safety Engineer 09/04/23
--- OUTSIDE RECORDS SUMMARY | 2024-06-03 08:48 | XMS_ITS ---
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 EXAM CYNDY MOLINA WHNP-BC Req uest Consultation By Specialist 01/09/13 NEW CURRICULUM ASSISTANT PRINCIPAL EXAM CYNDY MOLINA WHNP-BC Reques t Consultation By Gastroenterology - needs screening colonoscopy; Request Consultation By Specialist Problems Includes: Active, inactive, and resolved Problems All Visits Onset Date Resolved Date Provider Condition S tatus Osteopenia 01/11/2014 CYNDY MOLINA WHNP-BC Active Last Documented On 12/25/2019 10:40AM ; [facility] Note: YAJAIRAA done 12-22-2019 Tobacco Use 01/09/2013 CYNDY MOLINA WHNP-BC Active Last Documented On 3 8:16AM ; [facility] Plan of Treatment Findings Encounter Date Ordered Clinical summary pro vided to patient CURRICULUM ASSISTANT PRINCIPAL EXAM with CYNDY MOLINA WHNP-BC 12/25/2019 Last Documented On 0 10:53AM ; [facility] Ordered follow-up visit 1 ye ar or as needed CURRICULUM ASSISTANT PRINCIPAL EXAM with CYNDY MOLINA WHNP-BC 12/25/2019 Last Documented On 0 10:53AM ; [facility] Ordered Clinical summary pro vided to patient ANNUAL STRING WINDING MACHINE OPERATOR EXAM with CYNDY MOLINA WHNP-BC 02/08/2017 Last Documented On 7 3:55PM ; [facility] Ordered follow-up visit 1 ye ar or as needed ANNUAL STRING WINDING MACHINE OPERATOR EXAM with CYNDY MOLINA NP-BC 02/08/2017 Last Documented On 7 3:55PM ; [facility] Ordered Transition in care, clinical summary provided ANNUAL STRING WINDING MACHINE OPERATOR EXAM with CYNDY MOLINA NP-BC 02/08/2017 Last Documented On 7 3:55PM ; [facility] Requested Referred to: GI - screeening colonoscopy ANNUAL STRING WINDING MACHINE OPERATOR EXAM with CYNDY MOLINA NP-BC 02/08/2017 Last Documented On 7 3:55PM ; [facility] Ordered Clinical summary pro vided to patient ANNUAL STRING WINDING MACHINE OPERATOR EXAM with CYNDY MOLINA NP-BC 02/02/2016 Last Documented On 6 3:53PM ; [facility] Ordered follow-up visit 1 ye ar or as needed ANNUAL STRING WINDING MACHINE OPERATOR EXAM with CYNDY MOLINA NP-BC 02/02/2016 Last Documented On 6 3:53PM ; [facility] Ordered Clinical summary pro vided to patient ANNUAL STRING WINDING MACHINE OPERATOR EXAM with CYNDY MOLINA NP-BC 01/14/2015 Last Documented On 5 11:04AM ; [facility] Ordered follow-up visit 1 ye ar or as needed ANNUAL STRING WINDING MACHINE OPERATOR EXAM with CYNDY MOLINA NP-BC 01/14/2015 Last Documented On 5 11:04AM ; [facility] Ordered Clinical summary pro vided to patient ANNUAL STRING WINDING MACHINE OPERATOR EXAM with CYNDY MOLINA NP-BC 01/11/2014 Last Documented On 4 11:19AM ; [facility] Ordered follow-up visit 1 ye ar or as needed ANNUAL STRING WINDING MACHINE OPERATOR EXAM with CYNDY MOLINA NP-BC 01/11/2014 Last Documented On 4 11:19AM ; [facility] Ordered Clinical summary pro vided to patient NEW CURRICULUM ASSISTANT PRINCIPAL EXAM with CYNDY MOLINA NP-BC 01/09/2013 Last Documented On 3 8:29AM ; [facility] Ordered follow-up visit 1 ye ar or as needed NEW CURRICULUM ASSISTANT PRINCIPAL EXAM with CYNDY MOLINA NP-BC 01/09/2013 Last Documented On 3 8:29AM ; [facility] Ordered Transition in care, clinical summary provided NEW CURRICULUM ASSISTANT PRINCIPAL EXAM with CYNDY MOLINA WHNP-BC 01/09/2013 Last Documented On 3 8:29AM ; [facility] Referrals To Diagnosis Guide Delegate GLADIS CORBIN MD SCREEN MAL NE OP-RECTUM Note: 62 yo never had screen ing colonoscopy Last Documented On 3 9:46AM ; [facility] Urologist ELOISA GOOD MD Mixed inconti nence Last Documented On 7 3:54PM ; [facility] Instructions to patient Instructions for patient : B reast Self Exam discussed Last Documented On 0 10:34AM ; [facility] Lose weight Last Documented On 0 10:35AM ; [facility] Colonoscopy Handout given to patient Last Documented On 0 10:35AM ; [facility] Instructions for patient : B reast Self Exam discussed Last Documented On 7 3:25PM ; [facility] Lose weight Last Documented On 7 3:26PM ; [facility] Colonoscopy Handout given to patient Last Documented On 7 3:26PM ; [facility] Instructions for patient : B reast Self Exam discussed Last Documented On 6 3:22PM ; [facility] Lose weight Last Documented On 6 3:23PM ; [facility] Colonoscopy Handout given to patient Last Documented On 6 3:23PM ; [facility] Instructions for patient : B reast Self Exam discussed Last Documented On 5 10:36AM ; [facility] Lose weight Last Documented On 5 10:37AM ; [facility] Colonoscopy Handout given to patient Declines! Waiver reviewed and signed per pt Last Documented On 5 10:37AM ; [facility] Instructions for patient : B reast Self Exam discussed Last Documented On 4 10:53AM ; [facility] Colonoscopy Handout given to patient Waiver reviewed and signed per pt. - Declines at this time due to cost Last Documented On 4 11:07AM ; [facility] Instructions for patient : B reast Self Exam discussed Last Documented On 3 8:08AM ; [facility] Colonoscopy Handout given to patient Last Documented On 3 8:09AM ; [facility] Instructions for patient : B reast Self Exam discussed Last Documented On 1 2:43PM ; [facility] Instructions for patient : B reast Self Exam discussed Last Documented On 0 9:47AM ; [facility] Education and Decision Aids were provided during visit for: Patient Education: Daily mekhi cium and vitamin D Last Documented On 0 10:34AM ; [facility] Patient Education: weight be aring exercise Last Documented On 0 10:34AM ; [facility] Patient Education: Daily mekhi cium and vitamin D Last Documented On 7 3:25PM ; [facility] Patient Education: weight be aring exercise Last Documented On 7 3:25PM ; [facility] Smoking cessation advised Last Documented On 7 3:26PM ; [facility] Patient Education: Daily mekhi cium and vitamin D Last Documented On 6 3:22PM ; [facility] Patient Education: weight be aring exercise Last Documented On 6 3:22PM ; [facility] Smoking cessation advised Last Documented On 6 3:23PM ; [facility] Patient Education: Daily mekhi cium and vitamin D Last Documented On 5 10:36AM ; [facility] Patient Education: weight be aring exercise Last Documented On 5 10:36AM ; [facility] Smoking cessation advised Last Documented On 5 10:39AM ; [facility] Patient Education: Daily mekhi cium and vitamin D Last Documented On 4 10:53AM ; [facility] Patient Education: weight be aring exercise Last Documented On 4 10:53AM ; [facility] Smoking cessation advised Last Documented On 4 10:54AM ; [facility] Patient Education: Daily mekhi cium and vitamin D Last Documented On 3 8:08AM ; [facility] Patient Education: weight be aring exercise Last Documented On 3 8:08AM ; [facility] Smoking cessation advised Last Documented On 3 8:16AM ; [facility] STD screening offered and de clined Last Documented On 1 2:43PM ; [facility] Bone Mineral Density Screeni ng guidelines reviewed Last Documented On 1 2:43PM ; [facility] Patient Education: Daily mekhi cium and vitamin D Last Documented On 1 2:43PM ; [facility] Patient Education: weight be aring exercise Last Documented On 1 2:43PM ; [facility] Colonoscopy screening guidel kali discussed Last Documented On 1 2:43PM ; [facility] STD screening offered and de clined Last Documented On 0 9:47AM ; [facility] Bone Mineral Density Screeni ng guidelines reviewed Last Documented On 0 9:47AM ; [facility] Patient Education: Daily mekhi cium and vitamin D Last Documented On 0 9:47AM ; [facility] Patient Education: weight be aring exercise Last Documented On 0 9:47AM ; [facility] Colonoscopy screening guidel kali discussed Last Documented On 0 9:47AM ; [facility] Assessments Includes: Assessments for all patient encounters Findings Encounter Date NORMAL FEMALE EXAM CURRICULUM ASSISTANT PRINCIPAL EXAM with CYNDY Mireles [facility] 12/25/2019 Last Documented On 0 10:53AM ; [facility] Screening Malig. 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 Neoplasm Rectum ANNUAL STRING WINDING MACHINE OPERATOR EXAM with CYNDY MOLINA NP-BC 02/08/2017 Last Documented On 7 3:55PM ; [facility] NORMAL FEMALE EXAM ANNUAL STRING WINDING MACHINE OPERATOR EXAM with CYNDY MOLINA NP-BC 02/02/2016 Last Documented On 6 3:53PM ; [facility] Screening Malig. Neoplasm Rectum ANNUAL STRING WINDING MACHINE OPERATOR EXAM with CYNDY MOLINA NP-BC 02/02/2016 Last Documented On 6 3:53PM ; [facility] NORMAL FEMALE EXAM ANNUAL STRING WINDING MACHINE OPERATOR EXAM with CYNDY MOLINA [facility] 01/14/2015 Last Documented On 5 11:04AM ; [facility] Screening Malig. Neoplasm Rectum ANNUAL STRING WINDING MACHINE OPERATOR EXAM with CYNDY MOLINA [facility] 01/14/2015 Last Documented On 5 11:04AM ; [facility] NORMAL FEMALE EXAM ANNUAL STRING WINDING MACHINE OPERATOR EXAM with CYNDY MOLINA [facility] 01/11/2014 Last Documented On 4 11:19AM ; [facility] Screening Malig. Neoplasm Rectum ANNUAL STRING WINDING MACHINE OPERATOR EXAM with CYNDY MOLINA [facility] 01/11/2014 Last Documented On 4 11:19AM ; [facility] NORMAL FEMALE EXAM NEW CURRICULUM ASSISTANT PRINCIPAL EXAM with CYNDY GARCIA [facility] 01/09/2013 Last Documented On 3 8:29AM ; [facility] Screening Malig. Neoplasm Rectum NEW CURRICULUM ASSISTANT PRINCIPAL EXAM wi th CYNDY MOLINA [facility] 01/09/2013 Last Documented On 3 8:29AM ; [facility] Routine pelvic exam CURRICULUM ASSISTANT PRINCIPAL EXAM with BREE CONKLIN MD 03/27/2011 Last Documented On 1 3:00PM ; [facility] Screening Malig. Neoplasm Rectum CURRICULUM ASSISTANT PRINCIPAL EXAM with Noé CONKLIN MD 03/27/2011 Last Documented On 1 3:00PM ; [facility] Postcoital bleeding PROBLEM VISIT with BREE ROY MD 11/15/2010 Last Documented On 1 3:18PM ; [facility] Postmenopausal bleeding PROBLEM VISIT with BREE CONKLIN MD 11/15/2010 Last Documented On 1 3:18PM ; [facility] Routine pelvic exam CURRICULUM ASSISTANT PRINCIPAL EXAM with BREE CONKLIN MD 03/24/2010 Last Documented On 0 10:11AM ; [facility] Screening Malig. Neoplasm Rectum CURRICULUM ASSISTANT PRINCIPAL EXAM with Noé CONKLIN MD 03/24/2010 Last Documented On 0 10:11AM ; [facility] Instructions Includes: Instructions for all patient encounters Instructions to patient Instructions for patient : B reast Self Exam discussed Last Documented On 0 10:34AM ; [facility] Lose weight Last Documented On 0 10:35AM ; [facility] Colonoscopy Handout given to patient Last Documented On 0 10:35AM ; [facility] Instructions for patient : B reast Self Exam discussed Last Documented On 7 3:25PM ; [facility] Lose weight Last Documented On 7 3:26PM ; [facility] Colonoscopy Handout given to patient Last Documented On 7 3:26PM ; [facility] Instructions for patient : B reast Self Exam discussed Last Documented On 6 3:22PM ; [facility] Lose weight Last Documented On 6 3:23PM ; [facility] Colonoscopy Handout given to patient Last Documented On 6 3:23PM ; [facility] Instructions for patient : B reast Self Exam discussed Last Documented On 5 10:36AM ; [facility] Lose weight Last Documented On 5 10:37AM ; [facility] Colonoscopy Handout given to patient Declines! Waiver reviewed and signed per pt Last Documented On 5 10:37AM ; [facility] Instructions for patient : B reast Self Exam discussed Last Documented On 4 10:53AM ; [facility] Colonoscopy Handout given to patient Waiver reviewed and signed per pt. - Declines at this time due to cost Last Documented On 4 11:07AM ; [facility] Instructions for patient : B reast Self Exam discussed Last Documented On 3 8:08AM ; [facility] Colonoscopy Handout given to patient Last Documented On 3 8:09AM ; [facility] Instructions for patient : B reast Self Exam discussed Last Documented On 1 2:43PM ; [facility] Instructions for patient : B reast Self Exam discussed Last Documented On 0 9:47AM ; [facility] Education and Decision Aids were provided during visit for: Patient Education: Daily mekhi cium and vitamin D Last Documented On 0 10:34AM ; [facility] Patient Education: weight be aring exercise Last Documented On 0 10:34AM ; [facility] Patient Education: Daily mekhi cium and vitamin D Last Documented On 7 3:25PM ; [facility] Patient Education: weight be aring exercise Last Documented On 7 3:25PM ; [facility] Smoking cessation advised Last Documented On 7 3:26PM ; [facility] Patient Education: Daily mekhi cium and vitamin D Last Documented On 6 3:22PM ; [facility] Patient Education: weight be aring exercise Last Documented On 6 3:22PM ; [facility] Smoking cessation advised Last Documented On 6 3:23PM ; [facility] Patient Education: Daily mekhi cium and vitamin D Last Documented On 5 10:36AM ; [facility] Patient Education: weight be aring exercise Last Documented On 5 10:36AM ; [facility] Smoking cessation advised Last Documented On 5 10:39AM ; [facility] Patient Education: Daily mekhi cium and vitamin D Last Documented On 4 10:53AM ; [facility] Patient Education: weight be aring exercise Last Documented On 4 10:53AM ; [facility] Smoking cessation advised Last Documented On 4 10:54AM ; [facility] Patient Education: Daily mekhi cium and vitamin D Last Documented On 3 8:08AM ; [facility] Patient Education: weight be aring exercise Last Documented On 3 8:08AM ; [facility] Smoking cessation advised Last Documented On 3 8:16AM ; [facility] STD screening offered and de clined Last Documented On 1 2:43PM ; [facility] Bone Mineral Density Screeni ng guidelines reviewed Last Documented On 1 2:43PM ; [facility] Patient Education: Daily mekhi cium and vitamin D Last Documented On 1 2:43PM ; [facility] Patient Education: weight be aring exercise Last Documented On 1 2:43PM ; [facility] Colonoscopy screening guidel kali discussed Last Documented On 1 2:43PM ; [facility] STD screening offered and de clined Last Documented On 0 9:47AM ; [facility] Bone Mineral Density Screeni ng guidelines reviewed Last Documented On 0 9:47AM ; [facility] Patient Education: Daily mekhi cium and vitamin D Last Documented On 0 9:47AM ; [facility] Patient Education: weight be aring exercise Last Documented On 0 9:47AM ; [facility] Colonoscopy screening guidel kali discussed Last Documented On 0 9:47AM ; [facility] Medical Equipment - Implanted Devices Includes: Current and historical Devices No Medical Equipment Recorded Medications Includes: Current and historical Medications Past Medications on file Estrace 0.1 MG/GM Cream 12/12/2015 - 12/25/2019 Provid er: Diagnosis: 4 samples given Last Documented On 0 10:39AM By TIMOTEO ROSAS ; [facility] Estrace 0.1 MG/GM Cream 01/14/2015 - 02/08/2017 Provider: CYNDY MEZA Diagnosis: Postmenopausal a trophic vaginitis as directed - /2 applicator full pv @ hs 3x/week Last Documented On 02/08/2017 3:44PM By TIMOTEO ROSAS ; [facility] Estrace 0.1 MG/GM [facility] CREA 01/11/2014 - 01/14/2015 Prov ider: Diagnosis: Last Documented On 5 1:37PM By CYNDY MOLINA DWAINBC ; [facility] Estrace 0.1 MG/GM VA CREA 07/03/2012 - 01/09/2013 Prov ider: BREE CONKLIN MD Diagnosis: Last Documented On 01/09/2013 8:17AM By TIMOTEO ROSAS ; [facility] Diflucan 150 MG OR TABS 03/29/2011 - 01/09/2013 Provid er: BREE CONKLIN MD Diagnosis: phoned to [facility]. Last Documented On 01/09/2013 8:16AM By TIMOTEO ROSAS ; [facility] Estrace 0.1 MG/GM VA CREA 03/27/2011 - 01/11/2014 Prov ider: Diagnosis: Last Documented On 4 11:06AM By TIMOTEO ROSAS ; [facility] Estrace 0.1 MG/GM VA CREA 03/27/2011 - 01/09/2013 Prov ider: BREE CONKLIN MD Diagnosis: Last Documented On 01/09/2013 8:16AM By TIMOETO ROSAS ; [facility] Multi-Day Vitamins OR TABS 03/24/2010 - 03/27/2011 Pro vider: Diagnosis: Last Documented On 03/27/2011 2:42PM By BEAU ROSAS ; [facility] Fish Oil 300 MG OR CAPS 03/24/2010 - 03/27/2011 Provid er: Diagnosis: Last Documented On 03/27/2011 2:42PM By BEAU ROSAS ; [facility] Estrace 0.1 MG/GM [facility] CREA 03/24/2010 - 03/27/2011 Prov ider: BREE CONKLIN MD Diagnosis: 1 gram vaginally twice weekly Last Documented On 03/27/2011 3:00PM By BREE CONKLIN MD ; [facility] Bactrim DS 800-160 MG OR TABS 09/06/2008 - 01/09/2013 Provider: Diagnosis: Last Documented On 01/09/2013 8:16AM By TIMOTEO ROSAS ; [facility] Medications Administered Includes: Administered Medications in patient's chart No Administered Medications Recorded Results Includes: Results from 06/03/2023 through 06/03/2024 No Results Recorded For Specified Dates History of Present Illness History of Present Illness not supported for this document type No History of Present Illness Recorded Social History Description Last Updated Alcohol use occ 12/25/2019 Last Documented On 0 10:53AM ; [facility] Cigarette smoking 12/25/2019 Last Documented On 0 10:53AM ; [facility] Not using drugs 12/25/2019 Last Documented On 0 10:53AM ; [facility] Smoking status : Current some day smoker 12/25/2019 Last Documented On 0 10:53AM ; [facility] Social history unchanged 02/08/2017 Last Documented On 7 3:55PM ; [facility] Procedures and Surgical History Surgical History Last Updated Surgical / procedural history rt Carpal Tunnel Surgery 01/11/2014 Last Documented On 4 11:19AM ; [facility] History of tubal ligation 01/09/2013 Last Documented On 3 8:29AM ; [facility] Medical History Includes: Medical History in patient's chart Description Last Updated Sexually active 12/25/2019 Last Documented On 0 10:53AM ; [facility] No recent change in medical history 07/2019 Last Documented On 0 10:53AM ; [facility] History of a DXA of the late ral lumbar spine was performed 12/22/[address] Hoff at the end of the month to talk about rx for the thining of her bones 12/25/2019 Last Documented On 0 10:53AM ; [facility] History of complete colonosc opy Dr Hoff ordered a colongaurd has not recieved it yet 12/25/2019 Last Documented On 0 10:53AM ; [facility] History of screening mammogram was perfo rmed 2019 [email or web address] 12/25/2019 Last Documented On 0 10:53AM ; [facility] History of Pap smear done 02/08/201707/2019 Last Documented On 0 10:53AM ; [facility] Result: normal 12/25/2019 Last Documented On 0 10:53AM ; [facility] Result: normal 12/25/2019 Last Documented On 0 10:53AM ; [facility] [facility] LMP: 1993 03/27/2011 Last Documented On 1 3:00PM ; [facility] Status post tubal ligation 1985 03/27/20 11 Last Documented On 1 3:00PM ; [facility] 3 03/27/2011 Last Documented On 1 3:00PM ; [facility] Para 3 03/27/2011 Last Documented On 1 3:00PM ; [facility] History of menopause 03/24/2010 Last Documented On 0 10:11AM ; [facility] Family History Includes: Family History in patient's chart Description Last Updated Family history unchanged 12/25/2019 Last Documented On 0 10:53AM ; [facility] Maternal history of hypertension mother late in life 12/25/2019 Last Documented On 0 10:53AM ; [facility] Paternal history of diabetes mellitus fa ther at age 84 12/25/2019 Last Documented On 0 10:53AM ; [facility] father at age 85 pancreatic ca 4 Last Documented On 4 11:19AM ; [facility] Spouse name: Gladis 01/09/2013 Last Documented On 3 8:29AM ; [facility] Family history of hypertension mother la te in life 01/09/2013 Last Documented On 3 8:29AM ; [facility] Family history of Cancer 06/27/2009 Last Documented On 0 12:43PM ; [facility] Family history of thyroid disease 2009 Last Documented On 0 12:43PM ; [facility] Review of Systems Review of Systems not supported for this document type No Review of Systems Recorded Mental Status No Mental Status Recorded Functional Status No Functional Status Recorded Physical Exam Physical Exam not supported for this document type No Physical Exam Recorded Allergies Includes: Active, inactive, and resolved Allergies No Known Allergies Insurance Includes: Active Insurance Policies Plan Name Member ID Group # Subscriber Relationship Effect jeremiah Dates 1 - MEDICARE PART A CLAIMS/NGS [id number] ELVA Kraus 2 - [employer] [id number] PLAN G ELVA Kraus Clinical Notes Includes: Signed Clinical Notes starting from 05/11/2022 No Clinical Notes Recorded
--- OUTSIDE RECORDS SUMMARY | 2024-06-03 08:48 | XMS_ITS | Clinical Summary ---
Author Organization [facility] Address [address] [place] [address] Phone Care Team Providers Care Head Of Design Name Role Phone MARK MALDONADO MD Primary Care Provider [phone] Reason for Visit and Chief Complaint [Patient Encounter] Problems Includes: Problems addressed during this encounter and other active Problems All Visits Onset Date Resolved Date Provider Condition S tatus Osteopenia 01/11/2014 CYNDY MOLINA NP-BC Active Last Documented On 12/25/2019 10:40AM ; [facility] Note: DEXA 12-22-2019 Tobacco Use 01/09/2013 CYNDY MOLINA NP-BC Active Last Documented On 3 8:16AM ; [facility] Plan of Treatment No Plan of Treatment [...] Encounters Encounter Provider Location Date Check-In Time Check- Out Time Diagnosis [Patient Encounter] CYNDY MOLINA [facility] 8 2:17PM 11:59PM Insurance Includes: Active Insurance Policies Plan Name Member ID Group # Subscriber Relationship Effect jeremiah Dates 1 - MEDICARE PART A CLAIMS/NGS [id number] ELVA Kraus 2 - [facility] [id number] PLAN G ELVA Kraus Clinical Notes Includes: Clinical Notes from this encounter No Clinical Notes Recorded
--- OUTSIDE RECORDS SUMMARY | 2024-06-03 08:48 | XMS_ITS ---
Care Plan - [facility] Created on: June 03, 2024 ELVA DENNY : 1950 Sex: Female Author Organization [facility] Address [address] [place] [address] Phone Care Team Providers Care Covering Machine Tender Name Role Phone MARK MALDONADO MD Primary Care Provider [phone]
--- OUTSIDE RECORDS SUMMARY | 2024-06-03 08:48 | XMS_ITS | Clinical Summary ---
Author Organization [facility] Address [address] [place] [address] Phone Care Team Providers Care Test Baker Name Role Phone MARK MALDONADO MD Primary Care Provider [phone] Reason for Visit and Chief Complaint gynecologic annual exam - The Chief Complaint is: Annual Problems Includes: Problems addressed during this encounter and other active Problems All Visits Onset Date Resolved Date Provider Condition S tatus Osteopenia 01/11/2014 CYNDY MOLINA NP-BC Active Last Documented On 12/25/2019 10:40AM ; [facility] Note: DEXA done 12-22-2019 Tobacco Use 01/09/2013 CYNDY POTTS-BC Active Last Documented On 3 8:16AM ; [facility] Plan of Treatment - Referred to: GI - screeening colonoscopy - Last Documented On 02/08/2017 3:55PM ; [facility] - Follow-up visit 1 year or as needed - Last Documented On 02/08/2017 3:55PM ; [facility] - Clinical summary provided to patient - Last Documented On 02/08/2017 3:55PM ; [facility] - Transition in care, clinical summary provided - Last Documented On 02/08/2017 3:55PM ; [facility] Pending Tests Order Diagnosis Results Due Ordering P rovider Outside Procedures Colonoscopy Encounter for screening for malignant neoplasm of rectum 03/10/17 CYNDY POTTS-ROSA Last Documented On 8 3:50PM ; [facility] Radiology @ other - *MAMMOGRAPHY SCREENING MAMMOGRAM Encntr screen mammogram for malignant neoplasm of breast 06/21/17 CYNDY POTTS- Last Documented On 0 4:17PM ; [facility] Radiology @ other DEXA (to be scheduled) Ot disrd of bone density and structure, unspecified site 07/18/17 CYNDY MOLINA [facility]- Last Documented On 0 12:49PM ; [facility] Instructions to patient Instructions for patient : B reast Self Exam discussed Last Documented On 7 3:25PM ; [facility] Lose weight Last Documented On 7 3:26PM ; [facility] Colonoscopy Handout given to patient Last Documented On 7 3:26PM ; [facility] Education and Decision Aids were provided during visit for: Patient Education: Daily mekhi cium and vitamin D Last Documented On 7 3:25PM ; [facility] Patient Education: weight be aring exercise Last Documented On 7 3:25PM ; [facility] Smoking cessation advised Last Documented On 7 3:26PM ; [facility] Assessments Includes: Assessments from this encounter Findings - NORMAL FEMALE EXAM - Last Documented On 02/08/2017 3:55PM ; [facility] - Screening Malig. Neoplasm Rectum - Last Documented On 02/08/2017 3:55PM ; [facility] Instructions Includes: Instructions from this encounter Instructions to patient Instructions for patient : B reast Self Exam discussed Last Documented On 7 3:25PM ; [facility] Lose weight Last Documented On 7 3:26PM ; [facility] Colonoscopy Handout given to patient Last Documented On 7 3:26PM ; [facility] Education and Decision Aids were provided during visit for: Patient Education: Daily mekhi cium and vitamin D Last Documented On 7 3:25PM ; [facility] Patient Education: weight be aring exercise Last Documented On 7 3:25PM ; [facility] Smoking cessation advised Last Documented On 7 3:26PM ; [facility] Medical Equipment - Implanted Devices Includes: Current Devices No Medical Equipment Recorded Medications Includes: Medications discussed during this encounter and other current Medications Discontinued / Stopped on this date CYNDY MOLINA [facility]- on 01/14/2015 Estrace 0.1 MG/GM Cream Provider: CHRIS MOLINA [facility] Diagnosis: Postmenopausal a trophic vaginitis Last Documented On 02/08/2017 3:44PM By TIMOTEO ROSAS ; [facility] Medications Administered Includes: Administered Medications from this encounter No Administered Medications Recorded Vital Signs Includes: Vital Signs from this encounter Vital Name 02/08/2017 03:39P Blood Pressure Sitting L 120/70 BP Cuff Size Regular Height (in) 65 Weight (lb) 164 Body Mass Index (kg/m2) 27.3 Body Surface Area (m2) 1.8 Last Documented: On 02/08/2017 3:41PM ; [facility] Results Includes: Results discussed during this encounter No Results Recorded For Specified Dates History of Present Illness Includes: History of Present Illness from this encounter DALE DENNY is a 66 year old female. - Medication list reviewed - PRIMARY CARE PROVIDER : Dr Stokes Social History Description Last Updated Alcohol use occ 02/08/2017 Last Documented On 7 3:55PM ; [facility] Cigarette smoking 02/08/2017 Last Documented On 7 3:55PM ; [facility] In monogamous relationship 02/08/2017 Last Documented On 7 3:55PM ; [facility] Not using drugs 02/08/2017 Last Documented On 7 3:55PM ; [facility] Sexually active with 1 partners in the l ast year 02/08/2017 Last Documented On 7 3:55PM ; [facility] Social history unchanged 02/08/2017 Last Documented On 7 3:55PM ; [facility] Smoking status : Current some day smoker 02/08/2017 Last Documented On 7 3:55PM ; [facility] Procedures and Surgical History Includes: Procedures from this encounter Procedures Code Diagnosis Performing Provider Service L ocation Service Date low fat diet Last Documented On 7 3:26PM ; [facility] fecal occult blood test was negative 24357 Last Documented On 7 3:25PM ; [facility] normal history of Pap smear of cervix Last Documented On 7 3:43PM ; [facility] Cervical Pap Smear performed Q0091 Last Documented On 7 3:26PM ; [facility] Surgical History Last Updated Surgical / procedural history rt Carpal Tunnel Surgery 01/11/2014 Last Documented On 7 3:35PM ; [facility] History of tubal ligation 01/09/2013 Last Documented On 7 3:35PM ; [facility] Medical History Includes: Medical History addressed during this encounter Description Last Updated History of a DEXA of the lat eral lumbar spine was performed 07/19/2015 osteopenia 02/08/2017 Last Documented On 7 3:55PM ; [facility] section 02/08/2017 Last Documented On 7 3:55PM ; [facility] No recent change in medical history 01/21 Last Documented On 7 3:55PM ; [facility] History of complete colonosc opy pt has never had one but will get one this year 02/08/2017 Last Documented On 7 3:55PM ; [facility] Sexually active 02/08/2017 Last Documented On 7 3:55PM ; [facility] History of Pap smear done 02/02/2016 Last Documented On 7 3:55PM ; [facility] History of screening mammogram was perfo rmed 07/21/2015 02/08/2017 Last Documented On 7 3:55PM ; [facility] Result: normal 02/08/2017 Last Documented On 7 3:55PM ; [facility] Result: normal 02/08/2017 Last Documented On 7 3:55PM ; [facility] LMP: 1993 03/27/2011 Last Documented On 7 3:35PM ; [facility] Status post tubal ligation 1985 03/27/20 11 Last Documented On 7 3:35PM ; [facility] 3 03/27/2011 Last Documented On 7 3:35PM ; [facility] Para 3 03/27/2011 Last Documented On 7 3:35PM ; [facility] History of menopause 03/24/2010 Last Documented On 7 3:35PM ; [facility] Family History Includes: Family History addressed during this encounter Description Last Updated Family history unchanged 02/08/2017 Last Documented On 7 3:55PM ; [facility] Maternal aunt's history of uterine cance r maternal aunt 02/08/2017 Last Documented On 7 3:55PM ; [facility] Maternal history of hypertension mother late in life 02/08/2017 Last Documented On 7 3:55PM ; [facility] father at age 85 pancreatic ca 4 Last Documented On 7 3:35PM ; [facility] Spouse name: Matt 01/09/2013 Last Documented On 7 3:35PM ; [facility] Family history of Cancer 06/27/2009 Last Documented On 7 3:35PM ; [facility] Family history of thyroid disease 2009 Last Documented On 7 3:35PM ; [facility] Review of Systems Includes: Review of Systems [...] Date Check-In Time Check-Out Time Diagnosis ANNUAL JACQUARD FIXER EXAM CYNDY MOLINA [facility]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 Neoplasm Rectum,Normal Female Exam Insurance Includes: Active Insurance Policies Plan Name Member ID Group # Subscriber Relationship Effect jeremiah Dates 1 - MEDICARE PART A CLAIMS/NGS [id number] ELVA Kraus 2 - [employer] [id number] PLAN G ELVA Kraus Clinical Notes Includes: Clinical Notes from this encounter No Clinical Notes Recorded
--- OUTSIDE RECORDS SUMMARY | 2024-06-03 08:48 | XMS_ITS | Referral Summary ---
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 Not on file Not on file Not on file Last Filed Vital Signs Vital Sign Reading Time Taken Comments Blood Pressure 126/80 03/07/2017 9:41 AM INFORMATION ENGINEER Pulse 68 03/07/2017 9:13 AM INFORMATION ENGINEER Temperature - - Respiratory Rate 20 03/07/2017 9:13 AM INFORMATION ENGINEER Oxygen Saturation - - Inhaled Oxygen Concentration - - Weight 77.1 kg (170 lb) 03/07/2017 9:13 AM INFORMATION ENGINEER Height 162.6 cm (5' 4 ) 03/07/2017 9:13 AM INFORMATION ENGINEER Body Mass Index 29.18 03/07/2017 9:13 AM INFORMATION ENGINEER Plan of Treatment Not on file Insurance [employer] Care Teams Foreclosure Specialist Relationship Specialty Start Date End Date Christina Stokes MD [address] [place] [address] PCP - General 07/20/16
== END 2024-06-03 08:21 | disposition home or self-care (01) ==
PROVIDERS: PCP Physician Assistant Surgical; Visit Provider Orthopaedic Surgery
DX: M17.12 Unilateral primary osteoarthritis, left knee (principal); M25.462 Effusion, left knee
CPT/HCPCS: 73564

== ENCOUNTER 2024-06-03 09:54 | Outpatient (CLI) | payer MEDICARE, SELFPAY ==
--- NOTE | 2024-06-03 10:46 | ECG_ITS ---
Test Date: 2024-06-03 10:54:55 Measurements Intervals [place] Rate: 71 P: 60 TN: 196 QRS: 23 QRSD: 98 T: 24 QT: 396 QTc: 430 Interpretive Statements SINUS RHYTHM LOW QRS VOLTAGE IN PRECORDIAL LEADS CANNOT R/O SEPTAL INFARCT, AGE INDETERMINATE BORDERLINE ST-T WAVE ABNORMALITY- INFERIOR LEADS BASELINE ARTIFACT- AVR, AVL, AVF, V3 ABNORMAL ECG No previous ECG available for comparison Electronically Signed On 06-03-2024 11:16:47 DRAIN LAYER by Teddy Quiroz D.O.
--- OUTSIDE RECORDS SUMMARY | 2024-06-03 10:52 | XMS_ITS | Clinical Summary ---
Author Organization [facility] Address [address] [place] [address] Phone Care Team Providers Care Business Services Coordinator Name Role Phone Korin Coughlin Primary Care Provider + Allergies No known active allergies Medications Vitamin D, Ergocalciferol, 42431 units Capsule Take 50,000 Units by mouth [...] Valent 04/30/2019 Pneumococcal conjugate PCV20 , polysaccharide BAG133 conjugate, adjuvant, PF 09/04/2023 TDAP Vaccine 07/09/2013,04/22/2013 [...] a drink once in a while after [facility] Utilities Answer Date Recorded In the past 12 months has e [place], gas, oil, or water [employer] threatened to shut off services in your [...] often do you attend chur ch or restoration services? More than 4 times per year 09/04/2023 Do you belong to any clubs o r organizations such as anglican groups, unions, fraternal or athletic groups, or [...] Total Score - Questions 1-9 0 08/20 [facility] of Occupat ional Health - Occupational Stress [...] place to sleep or slept in a snf (including now)? No 09/04/2023 Education Answer Date [...] CDT Office Visit [facility] [address] [place] [address] Korin Coughlin, PAC [address] [place] [address] Health Maintenance Due Date Last Done Comments [...] Procedure Name Priority Date/Time Associated Diagnosis Comments [facility] BONE DENSITOMETRY AXIAL SKELETON Routine 12/16/2023 10:14 AM CDT Low bone mass Post-menopausal COLOGUARD Routine 09/19/2023 7:45 AM CDT Screening for colon cancer [facility] SCREENING BILATERAL DIGITAL W CAD W RAMY Routine 09/17/2023 9:16 AM CDT Visit for screening mammogram HEPATITIS C ANTIBODY Routine 01/09/2017 from Last 3 Months or Most Recently Relevant to Health Maintenance Results * [facility] BONE DENSITOMETRY AXIAL SKELETON (12/16/2023 10:14 [...] Narrative 12/16/2023 4:47 PM CDT EXAM DESCRIPTION: [facility] BONE DENSITOMETRY AXIAL SKELETON REASON FOR STUDY: 73 y/o year old F with given history of: Low bone mass, 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 MF: ADELINE Report ID: [id number] Reading Location: [id number] 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 MF: ADELINE Report ID: [id number] Reading Location: [place] [address] IMPRESSION: Low Bone Mass. REFERENCE: Bone mineral [...] AM CDT) Cologuard Negative Negative [facility] Comment: NEGATIVE TEST RESULT. A negative [...] Gilmore. et al, N Engl J Med 2014;370(14):5331-8411) The normal value (reference range) for this assay is negative. COLOGUARD RE-SCREENING RECOMMENDATION: Periodic colorectal cancer screening is an important part of preventive healthcare for asymptomatic individuals at average risk for colorectal cancer. Following a negative Cologuard result, the [place] Cancer Society and U.S. Multi-Society Task Force screening guidelines recommend a Cologuard re-screening interval of 3 years. References: [place] Cancer Society Guideline for Colorectal Cancer Screening: https://www.cancer.org/cancer/hfnac-qaraxc-ejnqvv/efuxwwxxt-rnbtoabyy-pqavmfm/ acs-recommendations.html.; Marcio WHITING, Chance MOLINA, Kraig De La TorreK, Colorectal Cancer Screening: Recommendations for Physicians and Patients from the U.S. Multi-Society Task Force on Colorectal Cancer Screening , Am J Gastroenterology 2017; 112:9095-2971. TEST DESCRIPTION: Composite algorithmic analysis of stool [...] Gilmore. et al, N Engl J Med 2014;370(14):6346-7074.) Cologuard may produce a false negative or false positive result (no colorectal cancer or precancerous polyp present at colonoscopy follow up). A negative Cologuard test result does not guarantee the absence of CRC or advanced adenoma (pre-cancer). The current Cologuard screening interval is every 3 years. ([place] Cancer Society and U.S. Multi-Society Task Force). Cologuard performance data in a 10,000 patient pivotal study using colonoscopy as the reference method can be accessed at the following location: www.VSS Monitoring/results. Additional description of the Cologuard test process, warnings and precautions can be found at www.cologuard.com. Stool 09/19/2023 7:45 AM CDT 09/20/2023 9:54 AM CDT Korin Coughlin PAC BODY FLUIDS & STOOLS ORD ERABLES Final Result [facility] [address] [place] [address], [facility] [address] [place] [address] * CHRISTY SCREENING BILATERAL DIGITAL W CAD [...] is made to exams dated: 02/08/2020, 12/30/2018 [facility], and 07/21/2015 [facility]. BREAST TISSUE:There are scattered fibroglandular densities in [...] exam. Electronically signed by: Sharri gonzáles/fareed:09/17/2023 17:51:14 Helmet Hat Puncher(s): RT Tricia(R)(M), [facility] letter sent: Normal Exam Reading location: [facility] BI-RADS: 2 Benign Procedure Note Sharri Sykes [...] is made to exams dated: 02/08/2020, 12/30/2018 [facility], and 07/21/2015 [facility]. BREAST TISSUE:There are scattered fibroglandular densities in [...] exam. Electronically signed by: Sharri gonzáles/fareed:09/17/2023 17:51:14 Helmet Hat Puncher(s): RT Tricia(R)(M), [facility] letter sent: Normal Exam Reading location: [facility] BI-RADS: 2 Benign us Kavya Davis MD IMG MAMMO ORDERABLES Final Result * HEPATITIS C ANTIBODY (01/09/2017) Blood specimen (specimen) us Not On File Provider CHEMISTRY ORDERABLES Final Result from Last 3 Months or Most Recently Relevant to Health Maintenance Insurance MEDICARE Care Teams Business Services Coordinator Relationship Specialty Start Date End Date Korin Coughlin [facility] [address] [place] [address] PCP - General Physician Incident Response Analyst 09/04/23
--- OUTSIDE RECORDS SUMMARY | 2024-06-03 10:52 | XMS_ITS | Encounter Summary ---
Author Organization [facility] Address [address] [place] [address] Phone Care Team Providers Care Frame Tender Name Role Phone Kavya Davis MD Primary Care Provider [phone] Korin Coughlin Primary Care Provider + Reason for Visit * Reason Onset Date Comments Referral 02/01/2023 Encounter Details Date Type Department Care Team (Late st Contact Info) Description 02/01/2023 Telephone [facility] [address] [place] [address] Kavya Davis MD [address] [place] [address] Referral Social History Tobacco Use Types Packs/Day [...] Garcia - 02/01/2023 10:10 AM CDT SITUATION: Negative Turner Apprentice requesting provider review Orthopedic Surgery Referral. BACKGROUND: Referral was processed. ASSESSMENT: Request for provider review due to the following reason(s): Patient refusal or unable to contact patient. RECOMMENDATION: Based on the above information the provider has the following option(s): This referral has been processed & faxed. However, we were unable to contact the patient regarding location information. Patient did not read the [employer] message nor did they respond to voice messages. Thank you. Leandra Garcia [facility] - Referrals opt 7 documented in this encounter Plan of Treatment Upcoming Encounters Date Type Department Care Team (Late st Contact Info) Description 09/04/2024 9:15 AM CDT Office Visit [facility] - Family [facility] [address] [place] [address] Korin Coughlin, PAC [address] [place] [address] documented as of this encounter Visit Diagnoses Not on filedocumented in this encounter Additional Health Concerns Assessment Noted Time PHQ-9 Depression Total Score: 0 08/31/19 21 2:00 PM CDT documented as of this encounter Care Teams Frame Tender Relationship Specialty Start Date End Date Kavya Davis MD [address] [place] [address] PCP - General Family Medicine 12/23/18 09/03/23 Korin Cuoghlin PAC [address] [place] [address] PCP - General Physician Director Financial Analysis 09/04/23 documented as of this encounter
--- OUTSIDE RECORDS SUMMARY | 2024-06-03 10:52 | XMS_ITS | Clinical Summary ---
Author Organization [facility] Address [address] [place] [address] Phone Care Team Providers Care Car Trimmer Name Role Phone MARK MALDONADO MD Primary Care Provider [phone] Reason for Visit and Chief Complaint gynecologic annual exam - The Chief Complaint is: Annual Problems Includes: Problems addressed during this encounter and other active Problems All Visits Onset Date Resolved Date Provider Condition S tatus Osteopenia 01/11/2014 CYNDY MOLINA [facility] Active Last Documented On 12/25/2019 10:40AM ; [facility] Note: DEXA done 12-22-2019 Tobacco Use 01/09/2013 CYNDY MOLINA [facility] Active Last Documented On 3 8:16AM ; [facility] Plan of Treatment - Follow-up visit 1 year or as needed - Last Documented On 02/02/2016 3:53PM ; [facility] - Clinical summary provided to patient - Last Documented On 02/02/2016 3:53PM ; [facility] Had calcium and alk. phos. with pcp - see results in chart. Will have vitamin D and PTH today to complete dexa labs. - Last Documented On 02/02/2016 3:53PM ; [facility] Instructions to patient Instructions for patient : B reast Self Exam discussed Last Documented On 6 3:22PM ; [facility] Lose weight Last Documented On 6 3:23PM ; [facility] Colonoscopy Handout given to patient Last Documented On 6 3:23PM ; [facility] Education and Decision Aids were provided during visit for: Patient Education: Daily mekhi cium and vitamin D Last Documented On 6 3:22PM ; [facility] Patient Education: weight be aring exercise Last Documented On 6 3:22PM ; [facility] Smoking cessation advised Last Documented On 6 3:23PM ; [facility] Assessments Includes: Assessments from this encounter Findings - NORMAL FEMALE EXAM - Last Documented On 02/02/2016 3:53PM ; [facility] - Screening Malig. Neoplasm Rectum - Last Documented On 02/02/2016 3:53PM ; [facility] Instructions Includes: Instructions from this encounter Instructions to patient Instructions for patient : B reast Self Exam discussed Last Documented On 6 3:22PM ; [facility] Lose weight Last Documented On 6 3:23PM ; [facility] Colonoscopy Handout given to patient Last Documented On 6 3:23PM ; [facility] Education and Decision Aids were provided during visit for: Patient Education: Daily mekhi cium and vitamin D Last Documented On 6 3:22PM ; [facility] Patient Education: weight be aring exercise Last Documented On 6 3:22PM ; [facility] Smoking cessation advised Last Documented On 6 3:23PM ; [facility] Medical Equipment - Implanted Devices [...] 1.9 Last Documented: On 02/02/2016 3:29PM ; [facility] Results Includes: Results discussed during this encounter No Results Recorded For Specified Dates History of Present Illness Includes: History of Present Illness from this encounter DALE DENNY is a 65 year old female. - Medication list reviewed - PRIMARY CARE PROVIDER : Dr Stokes - Menopause has occurred Social History Description Last Updated In monogamous relationship 02/02/2016 Last Documented On 6 3:53PM ; [facility] Not using alcohol 02/02/2016 Last Documented On 6 3:53PM ; [facility] Not using drugs 02/02/2016 Last Documented On 6 3:53PM ; [facility] Sexually active with 1 partners in the l ast year 02/02/2016 Last Documented On 6 3:53PM ; [facility] Non-smoker 02/02/2016 Last Documented On 6 3:53PM ; [facility] Social history unchanged 02/02/2016 Last Documented On 6 3:53PM ; [facility] Smoking status : Current some day smoker 02/02/2016 Last Documented On 6 3:53PM ; [facility] Procedures and Surgical History Includes: Procedures from this encounter Procedures Code Diagnosis Performing Provider Service L ocation Service Date low fat diet Last Documented On 6 3:23PM ; [facility] fecal occult blood test was negative 01795 Last Documented On 6 3:22PM ; [facility] normal history of Pap smear of cervix Last Documented On 6 3:40PM ; [facility] Cervical Pap Smear performed Q0091 Last Documented On 6 3:23PM ; [facility] Surgical History Last Updated Surgical / procedural history rt Carpal Tunnel Surgery 01/11/2014 Last Documented On 6 3:26PM ; [facility] History of tubal ligation 01/09/2013 Last Documented On 6 3:26PM ; [facility] Medical History Includes: Medical History addressed during this encounter Description Last Updated History of complete colonosc opy Pt never had one because she refused but she said this year she told Dr Stokes she would call her insurance to see who she can use and have one done 02/02/2016 Last Documented On 6 3:53PM ; [facility] Vaginal delivery 02/02/2016 Last Documented On 6 3:53PM ; [facility] No recent change in medical history 01/20 Last Documented On 6 3:53PM ; [facility] History of a DEXA of the lat eral lumbar spine was performed 07/19/2015 osteopenia-Insurance will not pay for blood work because dx 02/02/2016 Last Documented On 6 3:53PM ; [facility] Sexually active 02/02/2016 Last Documented On 6 3:53PM ; [facility] History of Pap smear done 01/14/201501/20 Last Documented On 6 3:53PM ; [facility] History of screening mammogram was perfo rmed 07/21/2015 02/02/2016 Last Documented On 6 3:53PM ; [facility] Result: normal 02/02/2016 Last Documented On 6 3:53PM ; [facility] Result: normal 02/02/2016 Last Documented On 6 3:53PM ; [facility] LMP: 1993 03/27/2011 Last Documented On 6 3:26PM ; [facility] Status post tubal ligation 1985 03/27/20 Last Documented On 6 3:26PM ; [facility] 3 03/27/2011 Last Documented On 6 3:26PM ; [facility] Para 3 03/27/2011 Last Documented On 6 3:26PM ; [facility] History of menopause 03/24/2010 Last Documented On 6 3:26PM ; [facility] Family History Includes: Family History addressed during this encounter Description Last Updated Family history unchanged 02/02/2016 Last Documented On 6 3:53PM ; [facility] Maternal history of hypertension mother late in life 02/02/2016 Last Documented On 6 3:53PM ; [facility] father at age 85 pancreatic ca 4 Last Documented On 6 3:26PM ; [facility] Spouse name: Matt 01/09/2013 Last Documented On 6 3:26PM ; [facility] Family history of Cancer 06/27/2009 Last Documented On 6 3:26PM ; [facility] Family history of thyroid disease 2009 Last Documented On 6 3:26PM ; [facility] Review of Systems Includes: Review of [...] Date Check-In Time Check-Out Time Diagnosis 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 Neoplasm Rectum,Normal Female Exam Insurance Includes: Active Insurance Policies Plan Name Member ID Group # Subscriber Relationship Effect jeremiah Dates 1 - MEDICARE PART A CLAIMS/NGS [id number] ELVA Kraus 2 - [employer] [id number] PLAN G ELVA Kraus Clinical Notes Includes: Clinical Notes from this encounter No Clinical Notes Recorded
--- OUTSIDE RECORDS SUMMARY | 2024-06-03 10:52 | XMS_ITS | Clinical Summary ---
Author Organization [facility] Address [address] [place] [address] Phone Care Team Providers Care Singer Songwriter Name Role Phone MARK MALDONADO MD Primary Care Provider [phone] Reason for Visit and Chief Complaint * PHONE CALL Problems Includes: Problems addressed during this encounter and other active Problems All Visits Onset Date Resolved Date Provider Condition S tatus Osteopenia 01/11/2014 CYNDY MOLINA NP-BC Active Last Documented On 12/25/2019 10:40AM ; [facility] Note: DEXA 12-22-2019 Tobacco Use 01/09/2013 CYNDY MOLINA NP-BC Active Last Documented On 3 8:16AM ; [facility] Plan of Treatment No Plan [...] Time Diagnosis * PHONE CALL CYNDY MOLINA [facility]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
--- OUTSIDE RECORDS SUMMARY | 2024-06-03 10:52 | XMS_ITS | Clinical Summary ---
Author Organization [facility] Address [address] [place] [address] Phone Care Team Providers Care Regional Controller Name Role Phone MARK MALDONADO MD Primary Care Provider [phone] Reason for Visit and Chief Complaint gynecologic annual exam - The Chief Complaint is: Annual Problems Includes: Problems addressed during this encounter and other active Problems All Visits Onset Date Resolved Date Provider Condition S tatus Osteopenia 01/11/2014 CYNDY MOLINA NP-BC Active Last Documented On 12/25/2019 10:40AM ; [facility] Note: DEXA done 12-22-2019 Tobacco Use 01/09/2013 CYNDY MOLINA NP-BC Active Last Documented On 3 8:16AM ; [facility] Plan of Treatment - Follow-up visit 1 year or as needed - Last Documented On 12/25/2019 10:53AM ; [facility] - Clinical summary provided to patient - Last Documented On 12/25/2019 10:53AM ; [facility] Pending Tests Order Diagnosis Results Due Ordering Erika rocha In office procedures - *[facility]ia Waived Labs *FOBT* Fecal Occult Blood Test Encounter for screening for malignant neoplasm of rectum 01/08/20 CYNDY MOLINA NP-BC Last Documented On 1 4:15PM ; [facility] Instructions to patient Instructions for patient : B reast Self Exam discussed Last Documented On 0 10:34AM ; [facility] Lose weight Last Documented On 0 10:35AM ; [facility] Colonoscopy Handout given to patient Last Documented On 0 10:35AM ; [facility] Education and Decision Aids were provided during visit for: Patient Education: Daily mekhi cium and vitamin D Last Documented On 0 10:34AM ; [facility] Patient Education: weight be aring exercise Last Documented On 0 10:34AM ; [facility] Assessments Includes: Assessments from this encounter Findings - NORMAL FEMALE EXAM [Z01.419 - Encounter for gynecological examination (general) (routine) without abnormal findings] - Last Documented On 12/25/2019 10:53AM ; [facility] - Screening Malig. Neoplasm Rectum [Z12.12 - Encounter for screening for malignant neoplasm of rectum] - Last Documented On 12/25/2019 10:53AM ; [facility] Instructions Includes: Instructions from this encounter Instructions to patient Instructions for patient : B reast Self Exam discussed Last Documented On 0 10:34AM ; [facility] Lose weight Last Documented On 0 10:35AM ; [facility] Colonoscopy Handout given to patient Last Documented On 0 10:35AM ; [facility] Education and Decision Aids were provided during visit for: Patient Education: Daily mekhi cium and vitamin D Last Documented On 0 10:34AM ; [facility] Patient Education: weight be aring exercise Last Documented On 0 10:34AM ; [facility] Medical Equipment - Implanted Devices Includes: Current Devices No Medical Equipment Recorded Medications Includes: Medications discussed during this encounter and other current Medications Discontinued / Stopped on this date on 12/12/2015 Estrace 0.1 MG/GM Cream Provider: Diagnosis: Last Documented On 0 10:39AM By TIMOTEO ROSAS ; [facility] Medications Administered Includes: Administered Medications from this [...] Last Documented: On 12/25/2019 10:37A M ; [facility] On 12/25/2019 10:35AM ; [facility] Results Includes: Results [...] 12/25/2019 Last Documented On 0 10:53AM ; [facility] Cigarette smoking 12/25/2019 Last Documented On 0 10:53AM ; [facility] Not using drugs 12/25/2019 Last Documented On 0 10:53AM ; [facility] Smoking status : Current some day smoker 12/25/2019 Last Documented On 0 10:53AM ; [facility] Social history unchanged 02/08/2017 Last Documented On 0 10:29AM ; [facility] Procedures and Surgical History Includes: Procedures from this encounter Procedures Code Diagnosis Performing Provider Service L ocation Service Date low fat diet Last Documented On 0 10:35AM ; [facility] Preventive Medicine Services (medicare pt) G0101 Last Documented On 0 10:35AM ; [facility] Pap smear done 45915 Last Documented On 0 10:35AM ; [facility] fecal occult blood test was negative 30087 Last Documented On 0 10:34AM ; [facility] Cervical Pap Smear performed Q0091 Last Documented On 0 10:35AM ; [facility] Surgical History Last Updated Surgical / procedural history rt Carpal Tunnel Surgery 01/11/2014 Last Documented On 0 10:29AM ; [facility] History of tubal ligation 01/09/2013 Last Documented On 0 10:29AM ; [facility] Medical History Includes: Medical History addressed during this encounter Description Last Updated Sexually active 12/25/2019 Last Documented On 0 10:53AM ; [facility] No recent change in medical history 07/2019 Last Documented On 0 10:53AM ; [facility] History of a DXA of the late ral lumbar spine was performed 12/22/[address] Hoff at the end of the month to talk about rx for the thining of her bones 12/25/2019 Last Documented On 0 10:53AM ; [facility] History of complete colonosc opy Dr Hoff ordered a colongaurd has not recieved it yet 12/25/2019 Last Documented On 0 10:53AM ; [facility] History of screening mammogram was perfo rmed 2019 [facility] 12/25/2019 Last Documented On 0 10:53AM ; [facility] History of Pap smear done 02/08/201707/2019 Last Documented On 0 10:53AM ; [facility] Result: normal 12/25/2019 Last Documented On 0 10:53AM ; [facility] Result: normal 12/25/2019 Last Documented On 0 10:53AM ; [facility] LMP: 199203/27/2011 Last Documented On 0 10:29AM ; [facility] Status post tubal ligation 1985 03/27/20 11 Last Documented On 0 10:29AM ; [facility] 3 03/27/2011 Last Documented On 0 10:29AM ; [facility] Para 3 03/27/2011 Last Documented On 0 10:29AM ; [facility] History of menopause 03/24/2010 Last Documented On 0 10:29AM ; [facility] Family History Includes: Family History addressed during this encounter Description Last Updated Family history unchanged 12/25/2019 Last Documented On 0 10:53AM ; [facility] Maternal history of hypertension mother late in life 12/25/2019 Last Documented On 0 10:53AM ; [facility] Paternal history of diabetes mellitus fa ther at age 84 12/25/2019 Last Documented On 0 10:53AM ; [facility] father at age 85 pancreatic ca 4 Last Documented On 0 10:29AM ; [facility] Spouse name: Matt 01/09/2013 Last Documented On 0 10:29AM ; [facility] Family history of Cancer 06/27/2009 Last Documented On 0 10:29AM ; [facility] Family history of thyroid disease 2009 Last Documented On 0 10:29AM ; [facility] Review of Systems Includes: Review of Systems [...] Location Date Check-In Time Check-Out Time Diagnosis 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 0 10:24AM 10:56AM Screening Malig. Neoplasm Rectum,Normal Female Exam Insurance Includes: Active Insurance Policies Plan Name Member ID Group # Subscriber Relationship Effect jeremiah Dates 1 - MEDICARE PART A CLAIMS/NGS [id number] ELVA Kraus 2 - [employer] [id number] PLAN G ELVA Kraus Clinical Notes Includes: Clinical Notes from this encounter No Clinical Notes Recorded
--- OUTSIDE RECORDS SUMMARY | 2024-06-03 10:53 | XMS_ITS | Referral Summary ---
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 Not on file Not on file Last Filed Vital Signs Vital Sign Reading Time Taken Comments Blood Pressure 126/80 03/07/2017 9:41 AM BREAD DUMPER Pulse 68 03/07/2017 9:13 AM BREAD DUMPER Temperature - - Respiratory Rate 20 03/07/2017 9:13 AM BREAD DUMPER Oxygen Saturation - - Inhaled Oxygen Concentration - - Weight 77.1 kg (170 lb) 03/07/2017 9:13 AM BREAD DUMPER Height 162.6 cm (5' 4 ) 03/07/2017 9:13 AM BREAD DUMPER Body Mass Index 29.18 03/07/2017 9:13 AM BREAD DUMPER Plan of Treatment Not on file Insurance [employer] Care Teams Production Line Assembler Relationship Specialty Start Date End Date Christina Stokes MD [address] [employer] [place] [address] PCP - General 07/20/16
--- OUTSIDE RECORDS SUMMARY | 2024-06-03 10:53 | XMS_ITS | Clinical Summary ---
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 Not on file Not on file Obstetrics History Last Filed Vital Signs Vital Sign Reading Time Taken Comments Blood Pressure 126/80 03/07/2017 9:41 AM WATER PUMP INSTALLER Pulse 68 03/07/2017 9:13 AM WATER PUMP INSTALLER Temperature - - Respiratory Rate 20 03/07/2017 9:13 AM WATER PUMP INSTALLER Oxygen Saturation - - Inhaled Oxygen Concentration - - Weight 77.1 kg (170 lb) 03/07/2017 9:13 AM WATER PUMP INSTALLER Height 162.6 cm (5' 4 ) 03/07/2017 9:13 AM WATER PUMP INSTALLER Body Mass Index 29.18 03/07/2017 9:13 AM WATER PUMP INSTALLER Plan of Treatment Not on file Insurance [employer] [facility] Care Teams Orchard Manager Relationship Specialty Start Date End Date Christina Stokes MD [address] [place] [place] [address] PCP - General 07/20/16
--- OUTSIDE RECORDS SUMMARY | 2024-06-03 10:53 | XMS_ITS | Clinical Summary ---
Author Organization [facility] Address [address] [place] [address] Phone Care Team Providers Care Traffic Counter Name Role Phone MARK MALDONADO MD Primary Care Provider [phone] Reason for Visit and Chief Complaint [Patient Encounter] Problems Includes: Problems addressed during this encounter and other active Problems All Visits Onset Date Resolved Date Provider Condition S tatus Osteopenia 01/11/2014 CYNDY MOLINA NP-BC Active Last Documented On 12/25/2019 10:40AM ; [facility] Note: DEXA 12-22-2019 Tobacco Use 01/09/2013 CYNDY MOLINA NP-BC Active Last Documented On 3 8:16AM ; [facility] Plan of Treatment No Plan of Treatment [...] Out Time Diagnosis [Patient Encounter] CYNDY MOLINA [facility] [employer]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
--- OUTSIDE RECORDS SUMMARY | 2024-06-03 10:53 | XMS_ITS ---
Author Organization [facility] Address [address] [place] [address] Phone Care Team Providers Care Community Planning Technician Name Role Phone MARK MALDONADO MD Primary Care Provider Reason for Referral Date Encounter Description Provider Reason for Referral 01/14/15 ANNUAL FURNACE INSTALLER EXAM CYNDY MOLINA WHNP-BC Req uest Consultation By Specialist 01/09/13 NEW CHILD WELFARE MANAGER EXAM CYNDY MOLINA WHNP-BC Reques t Consultation By Gastroenterology - needs screening colonoscopy; Request Consultation By Specialist Problems Includes: Active, inactive, and resolved Problems All Visits Onset Date Resolved Date Provider Condition S tatus Osteopenia 01/11/2014 CYNDY MOLINA WHNP-BC Active Last Documented On 12/25/2019 10:40AM ; [facility] Note: YAJAIRAA done 12-22-2019 Tobacco Use 01/09/2013 CYNDY MOLINA WHNP-BC Active Last Documented On 3 8:16AM ; [facility] Plan of Treatment Findings Encounter Date Ordered Clinical summary pro vided to patient CHILD WELFARE MANAGER EXAM with CYNDY MOLINA WHNP-BC 12/25/2019 Last Documented On 0 10:53AM ; [facility] Ordered follow-up visit 1 ye ar or as needed CHILD WELFARE MANAGER EXAM with CYNDY MOLINA WHNP-BC 12/25/2019 Last Documented On 0 10:53AM ; [facility] Ordered Clinical summary pro vided to patient ANNUAL FURNACE INSTALLER EXAM with CYNDY MOLINA WHNP-BC 02/08/2017 Last Documented On 7 3:55PM ; [facility] Ordered follow-up visit 1 ye ar or as needed ANNUAL FURNACE INSTALLER EXAM with CYNDY MOLINA NP-BC 02/08/2017 Last Documented On 7 3:55PM ; [facility] Ordered Transition in care, clinical summary provided ANNUAL FURNACE INSTALLER EXAM with CYNDY MOLINA NP-BC 02/08/2017 Last Documented On 7 3:55PM ; [facility] Requested Referred to: GI - screeening colonoscopy ANNUAL FURNACE INSTALLER EXAM with CYNDY MOLINA NP-BC 02/08/2017 Last Documented On 7 3:55PM ; [facility] Ordered Clinical summary pro vided to patient ANNUAL FURNACE INSTALLER EXAM with CYNDY MOLINA NP-BC 02/02/2016 Last Documented On 6 3:53PM ; [facility] Ordered follow-up visit 1 ye ar or as needed ANNUAL FURNACE INSTALLER EXAM with CYNDY MOLINA NP-BC 02/02/2016 Last Documented On 6 3:53PM ; [facility] Ordered Clinical summary pro vided to patient ANNUAL FURNACE INSTALLER EXAM with CYNDY MOLINA NP-BC 01/14/2015 Last Documented On 5 11:04AM ; [facility] Ordered follow-up visit 1 ye ar or as needed ANNUAL FURNACE INSTALLER EXAM with CYNDY MOLINA NP-BC 01/14/2015 Last Documented On 5 11:04AM ; [facility] Ordered Clinical summary pro vided to patient ANNUAL FURNACE INSTALLER EXAM with CYNDY MOLINA NP-BC 01/11/2014 Last Documented On 4 11:19AM ; [facility] Ordered follow-up visit 1 ye ar or as needed ANNUAL FURNACE INSTALLER EXAM with CYNDY MOLINA NP-BC 01/11/2014 Last Documented On 4 11:19AM ; [facility] Ordered Clinical summary pro vided to patient NEW CHILD WELFARE MANAGER EXAM with CYNDY MOLINA NP-BC 01/09/2013 Last Documented On 3 8:29AM ; [facility] Ordered follow-up visit 1 ye ar or as needed NEW CHILD WELFARE MANAGER EXAM with CYNDY MOLINA NP-BC 01/09/2013 Last Documented On 3 8:29AM ; [facility] Ordered Transition in care, clinical summary provided NEW CHILD WELFARE MANAGER EXAM with CYNDY MOLINA WHNP-BC 01/09/2013 Last Documented On 3 8:29AM ; [facility] Referrals To Diagnosis Print Line Operator GLADIS CORBIN MD SCREEN MAL NE OP-RECTUM Note: 62 yo never had screen ing colonoscopy Last Documented On 3 9:46AM ; [facility] Urologist ELOSIA GOOD MD Mixed inconti nence Last Documented On 7 3:54PM ; [facility] Instructions to patient Instructions for patient : B reast Self Exam discussed Last Documented On 0 10:34AM ; [facility] Lose weight Last Documented On 0 10:35AM ; [facility] Colonoscopy Handout given to patient Last Documented On 0 10:35AM ; [facility] Instructions for patient : B reast Self Exam discussed Last Documented On 7 3:25PM ; [facility] Lose weight Last Documented On 7 3:26PM ; [facility] Colonoscopy Handout given to patient Last Documented On 7 3:26PM ; [facility] Instructions for patient : B reast Self Exam discussed Last Documented On 6 3:22PM ; [facility] Lose weight Last Documented On 6 3:23PM ; [facility] Colonoscopy Handout given to patient Last Documented On 6 3:23PM ; [facility] Instructions for patient : B reast Self Exam discussed Last Documented On 5 10:36AM ; [facility] Lose weight Last Documented On 5 10:37AM ; [facility] Colonoscopy Handout given to patient Declines! Waiver reviewed and signed per pt Last Documented On 5 10:37AM ; [facility] Instructions for patient : B reast Self Exam discussed Last Documented On 4 10:53AM ; [facility] Colonoscopy Handout given to patient Waiver reviewed and signed per pt. - Declines at this time due to cost Last Documented On 4 11:07AM ; [facility] Instructions for patient : B reast Self Exam discussed Last Documented On 3 8:08AM ; [facility] Colonoscopy Handout given to patient Last Documented On 3 8:09AM ; [facility] Instructions for patient : B reast Self Exam discussed Last Documented On 1 2:43PM ; [facility] Instructions for patient : B reast Self Exam discussed Last Documented On 0 9:47AM ; [facility] Education and Decision Aids were provided during visit for: Patient Education: Daily mekhi cium and vitamin D Last Documented On 0 10:34AM ; [facility] Patient Education: weight be aring exercise Last Documented On 0 10:34AM ; [facility] Patient Education: Daily mekhi cium and vitamin D Last Documented On 7 3:25PM ; [facility] Patient Education: weight be aring exercise Last Documented On 7 3:25PM ; [facility] Smoking cessation advised Last Documented On 7 3:26PM ; [facility] Patient Education: Daily mekhi cium and vitamin D Last Documented On 6 3:22PM ; [facility] Patient Education: weight be aring exercise Last Documented On 6 3:22PM ; [facility] Smoking cessation advised Last Documented On 6 3:23PM ; [facility] Patient Education: Daily mekhi cium and vitamin D Last Documented On 5 10:36AM ; [facility] Patient Education: weight be aring exercise Last Documented On 5 10:36AM ; [facility] Smoking cessation advised Last Documented On 5 10:39AM ; [facility] Patient Education: Daily mekhi cium and vitamin D Last Documented On 4 10:53AM ; [facility] Patient Education: weight be aring exercise Last Documented On 4 10:53AM ; [facility] Smoking cessation advised Last Documented On 4 10:54AM ; [facility] Patient Education: Daily mekhi cium and vitamin D Last Documented On 3 8:08AM ; [facility] Patient Education: weight be aring exercise Last Documented On 3 8:08AM ; [facility] Smoking cessation advised Last Documented On 3 8:16AM ; [facility] STD screening offered and de clined Last Documented On 1 2:43PM ; [facility] Bone Mineral Density Screeni ng guidelines reviewed Last Documented On 1 2:43PM ; [facility] Patient Education: Daily mekhi cium and vitamin D Last Documented On 1 2:43PM ; [facility] Patient Education: weight be aring exercise Last Documented On 1 2:43PM ; [facility] Colonoscopy screening guidel kali discussed Last Documented On 1 2:43PM ; [facility] STD screening offered and de clined Last Documented On 0 9:47AM ; [facility] Bone Mineral Density Screeni ng guidelines reviewed Last Documented On 0 9:47AM ; [facility] Patient Education: Daily mekhi cium and vitamin D Last Documented On 0 9:47AM ; [facility] Patient Education: weight be aring exercise Last Documented On 0 9:47AM ; [facility] Colonoscopy screening guidel kali discussed Last Documented On 0 9:47AM ; [facility] Assessments Includes: Assessments for all patient encounters Findings Encounter Date NORMAL FEMALE EXAM CHILD WELFARE MANAGER EXAM with CYNDY Mireles [facility] 12/25/2019 Last Documented On 0 10:53AM ; [facility] Screening Malig. Neoplasm Rectum CHILD WELFARE MANAGER EXAM with Tayler MOLINA NP-BC 12/25/2019 Last Documented On 0 10:53AM ; [facility] NORMAL FEMALE EXAM ANNUAL FURNACE INSTALLER EXAM with CYNDY MOLINA NP-BC 02/08/2017 Last Documented On 7 3:55PM ; [facility] Screening Malig. Neoplasm Rectum ANNUAL FURNACE INSTALLER EXAM with CYNDY MOLINA NP-BC 02/08/2017 Last Documented On 7 3:55PM ; [facility] NORMAL FEMALE EXAM ANNUAL FURNACE INSTALLER EXAM with CYNDY MOLINA NP-BC 02/02/2016 Last Documented On 6 3:53PM ; [facility] Screening Malig. Neoplasm Rectum ANNUAL FURNACE INSTALLER EXAM with CYNDY MOLINA NP-BC 02/02/2016 Last Documented On 6 3:53PM ; [facility] NORMAL FEMALE EXAM ANNUAL FURNACE INSTALLER EXAM with CYNDY MOLINA [facility] 01/14/2015 Last Documented On 5 11:04AM ; [facility] Screening Malig. Neoplasm Rectum ANNUAL FURNACE INSTALLER EXAM with CYNDY MOLINA [facility] 01/14/2015 Last Documented On 5 11:04AM ; [facility] NORMAL FEMALE EXAM ANNUAL FURNACE INSTALLER EXAM with CYNDY MOLINA [facility] 01/11/2014 Last Documented On 4 11:19AM ; [facility] Screening Malig. Neoplasm Rectum ANNUAL FURNACE INSTALLER EXAM with CYNDY MOLINA [facility] 01/11/2014 Last Documented On 4 11:19AM ; [facility] NORMAL FEMALE EXAM NEW CHILD WELFARE MANAGER EXAM with CYNDY GARCIA [facility] 01/09/2013 Last Documented On 3 8:29AM ; [facility] Screening Malig. Neoplasm Rectum NEW CHILD WELFARE MANAGER EXAM wi th CYNDY MOLINA [facility] 01/09/2013 Last Documented On 3 8:29AM ; [facility] Routine pelvic exam CHILD WELFARE MANAGER EXAM with BREE CONKLIN MD 03/27/2011 Last Documented On 1 3:00PM ; [facility] Screening Malig. Neoplasm Rectum CHILD WELFARE MANAGER EXAM with Noé CONLKIN MD 03/27/2011 Last Documented On 1 3:00PM ; [facility] Postcoital bleeding PROBLEM VISIT with BREE ROY MD 11/15/2010 Last Documented On 1 3:18PM ; [facility] Postmenopausal bleeding PROBLEM VISIT with BREE CONKLIN MD 11/15/2010 Last Documented On 1 3:18PM ; [facility] Routine pelvic exam CHILD WELFARE MANAGER EXAM with BREE CONKLIN MD 03/24/2010 Last Documented On 0 10:11AM ; [facility] Screening Malig. Neoplasm Rectum CHILD WELFARE MANAGER EXAM with Noé CONKLIN MD 03/24/2010 Last Documented On 0 10:11AM ; [facility] Instructions Includes: Instructions for all patient encounters Instructions to patient Instructions for patient : B reast Self Exam discussed Last Documented On 0 10:34AM ; [facility] Lose weight Last Documented On 0 10:35AM ; [facility] Colonoscopy Handout given to patient Last Documented On 0 10:35AM ; [facility] Instructions for patient : B reast Self Exam discussed Last Documented On 7 3:25PM ; [facility] Lose weight Last Documented On 7 3:26PM ; [facility] Colonoscopy Handout given to patient Last Documented On 7 3:26PM ; [facility] Instructions for patient : B reast Self Exam discussed Last Documented On 6 3:22PM ; [facility] Lose weight Last Documented On 6 3:23PM ; [facility] Colonoscopy Handout given to patient Last Documented On 6 3:23PM ; [facility] Instructions for patient : B reast Self Exam discussed Last Documented On 5 10:36AM ; [facility] Lose weight Last Documented On 5 10:37AM ; [facility] Colonoscopy Handout given to patient Declines! Waiver reviewed and signed per pt Last Documented On 5 10:37AM ; [facility] Instructions for patient : B reast Self Exam discussed Last Documented On 4 10:53AM ; [facility] Colonoscopy Handout given to patient Waiver reviewed and signed per pt. - Declines at this time due to cost Last Documented On 4 11:07AM ; [facility] Instructions for patient : B reast Self Exam discussed Last Documented On 3 8:08AM ; [facility] Colonoscopy Handout given to patient Last Documented On 3 8:09AM ; [facility] Instructions for patient : B reast Self Exam discussed Last Documented On 1 2:43PM ; [facility] Instructions for patient : B reast Self Exam discussed Last Documented On 0 9:47AM ; [facility] Education and Decision Aids were provided during visit for: Patient Education: Daily mekhi cium and vitamin D Last Documented On 0 10:34AM ; [facility] Patient Education: weight be aring exercise Last Documented On 0 10:34AM ; [facility] Patient Education: Daily mekhi cium and vitamin D Last Documented On 7 3:25PM ; [facility] Patient Education: weight be aring exercise Last Documented On 7 3:25PM ; [facility] Smoking cessation advised Last Documented On 7 3:26PM ; [facility] Patient Education: Daily mekhi cium and vitamin D Last Documented On 6 3:22PM ; [facility] Patient Education: weight be aring exercise Last Documented On 6 3:22PM ; [facility] Smoking cessation advised Last Documented On 6 3:23PM ; [facility] Patient Education: Daily mekhi cium and vitamin D Last Documented On 5 10:36AM ; [facility] Patient Education: weight be aring exercise Last Documented On 5 10:36AM ; [facility] Smoking cessation advised Last Documented On 5 10:39AM ; [facility] Patient Education: Daily mekhi cium and vitamin D Last Documented On 4 10:53AM ; [facility] Patient Education: weight be aring exercise Last Documented On 4 10:53AM ; [facility] Smoking cessation advised Last Documented On 4 10:54AM ; [facility] Patient Education: Daily mekhi cium and vitamin D Last Documented On 3 8:08AM ; [facility] Patient Education: weight be aring exercise Last Documented On 3 8:08AM ; [facility] Smoking cessation advised Last Documented On 3 8:16AM ; [facility] STD screening offered and de clined Last Documented On 1 2:43PM ; [facility] Bone Mineral Density Screeni ng guidelines reviewed Last Documented On 1 2:43PM ; [facility] Patient Education: Daily mekhi cium and vitamin D Last Documented On 1 2:43PM ; [facility] Patient Education: weight be aring exercise Last Documented On 1 2:43PM ; [facility] Colonoscopy screening guidel kali discussed Last Documented On 1 2:43PM ; [facility] STD screening offered and de clined Last Documented On 0 9:47AM ; [facility] Bone Mineral Density Screeni ng guidelines reviewed Last Documented On 0 9:47AM ; [facility] Patient Education: Daily mekhi cium and vitamin D Last Documented On 0 9:47AM ; [facility] Patient Education: weight be aring exercise Last Documented On 0 9:47AM ; [facility] Colonoscopy screening guidel kali discussed Last Documented On 0 9:47AM ; [facility] Medical Equipment - Implanted Devices Includes: Current and historical Devices No Medical Equipment Recorded Medications Includes: Current and historical Medications Past Medications on file Estrace 0.1 MG/GM Cream 12/12/2015 - 12/25/2019 Provid er: Diagnosis: 4 samples given Last Documented On 0 10:39AM By TIMOTEO ROSAS ; [facility] Estrace 0.1 MG/GM Cream 01/14/2015 - 02/08/2017 Provider: CYNDY MEZA Diagnosis: Postmenopausal a trophic vaginitis as directed - /2 applicator full pv @ hs 3x/week Last Documented On 02/08/2017 3:44PM By TIMOTEO ROSAS ; [facility] Estrace 0.1 MG/GM [facility] CREA 01/11/2014 - 01/14/2015 Prov ider: Diagnosis: Last Documented On 5 1:37PM By CYNDY MOLINA DWAINBC ; [facility] Estrace 0.1 MG/GM VA CREA 07/03/2012 - 01/09/2013 Prov ider: BREE CONKLIN MD Diagnosis: Last Documented On 01/09/2013 8:17AM By TIMOTEO ROSAS ; [facility] Diflucan 150 MG OR TABS 03/29/2011 - 01/09/2013 Provid er: BREE CONKLIN MD Diagnosis: phoned to [facility]. Last Documented On 01/09/2013 8:16AM By TIMOTEO ROSAS ; [facility] Estrace 0.1 MG/GM VA CREA 03/27/2011 - 01/11/2014 Prov ider: Diagnosis: Last Documented On 4 11:06AM By TIMOTEO ROSAS ; [facility] Estrace 0.1 MG/GM VA CREA 03/27/2011 - 01/09/2013 Prov ider: BREE CONKLIN MD Diagnosis: Last Documented On 01/09/2013 8:16AM By TIMOTEO ROSAS ; [facility] Multi-Day Vitamins OR TABS 03/24/2010 - 03/27/2011 Pro vider: Diagnosis: Last Documented On 03/27/2011 2:42PM By BEAU ROSAS ; [facility] Fish Oil 300 MG OR CAPS 03/24/2010 - 03/27/2011 Provid er: Diagnosis: Last Documented On 03/27/2011 2:42PM By BEAU ROSAS ; [facility] Estrace 0.1 MG/GM VA CREA 03/24/2010 - 03/27/2011 Prov ider: BREE CONKLIN MD Diagnosis: 1 gram vaginally twice weekly Last Documented On 03/27/2011 3:00PM By BREE CONKLIN MD ; [facility] Bactrim DS 800-160 MG OR TABS 09/06/2008 - 01/09/2013 Provider: Diagnosis: Last Documented On 01/09/2013 8:16AM By TIMOTEO ROSAS ; [facility] Medications Administered Includes: Administered Medications in patient's chart No Administered Medications Recorded Results Includes: Results from 06/03/2023 through 06/03/2024 No Results Recorded For Specified Dates History of Present Illness History of Present Illness not supported for this document type No History of Present Illness Recorded Social History Description Last Updated Alcohol use occ 12/25/2019 Last Documented On 0 10:53AM ; [facility] Cigarette smoking 12/25/2019 Last Documented On 0 10:53AM ; [facility] Not using drugs 12/25/2019 Last Documented On 0 10:53AM ; [facility] Smoking status : Current some day smoker 12/25/2019 Last Documented On 0 10:53AM ; [facility] Social history unchanged 02/08/2017 Last Documented On 7 3:55PM ; [facility] Procedures and Surgical History Surgical History Last Updated Surgical / procedural history rt Carpal Tunnel Surgery 01/11/2014 Last Documented On 4 11:19AM ; [facility] History of tubal ligation 01/09/2013 Last Documented On 3 8:29AM ; [facility] Medical History Includes: Medical History in patient's chart Description Last Updated Sexually active 12/25/2019 Last Documented On 0 10:53AM ; [facility] No recent change in medical history 07/2019 Last Documented On 0 10:53AM ; [facility] History of a DXA of the late ral lumbar spine was performed 12/22/[address] Hoff at the end of the month to talk about rx for the thining of her bones 12/25/2019 Last Documented On 0 10:53AM ; [facility] History of complete colonosc opy Dr Hoff ordered a colongaurd has not recieved it yet 12/25/2019 Last Documented On 0 10:53AM ; [facility] History of screening mammogram was perfo [facility]med 2019 [facility] 12/25/2019 Last Documented On 0 10:53AM ; [facility] History of Pap smear done 02/08/201707/2019 Last Documented On 0 10:53AM ; [facility] Result: normal 12/25/2019 Last Documented On 0 10:53AM ; [facility] Result: normal 12/25/2019 Last Documented On 0 10:53AM ; [facility] LMP: 1993 03/27/2011 Last Documented On 1 3:00PM ; [facility] Status post tubal ligation 1985 03/27/20 11 Last Documented On 1 3:00PM ; [facility] 3 03/27/2011 Last Documented On 1 3:00PM ; [facility] Para 3 03/27/2011 Last Documented On 1 3:00PM ; [facility] History of menopause 03/24/2010 Last Documented On 0 10:11AM ; [facility] Family History Includes: Family History in patient's chart Description Last Updated Family history unchanged 12/25/2019 Last Documented On 0 10:53AM ; [facility] Maternal history of hypertension mother late in life 12/25/2019 Last Documented On 0 10:53AM ; [facility] Paternal history of diabetes mellitus fa ther at age 84 12/25/2019 Last Documented On 0 10:53AM ; [facility] father at age 85 pancreatic ca 4 Last Documented On 4 11:19AM ; [facility] Spouse name: Gladis 01/09/2013 Last Documented On 3 8:29AM ; [facility] Family history of hypertension mother la te in life 01/09/2013 Last Documented On 3 8:29AM ; [facility] Family history of Cancer 06/27/2009 Last Documented On 0 12:43PM ; [facility] Family history of thyroid disease 2009 Last Documented On 0 12:43PM ; [facility] Review of Systems Review of Systems not [...] Dates 1 - MEDICARE PART A CLAIMS/NGS [id number] ELVA Kraus 2 - [employer] [id number] PLAN G ELVA Kraus Clinical Notes Includes: Signed Clinical Notes starting from 05/11/2022 No Clinical Notes Recorded
--- OUTSIDE RECORDS SUMMARY | 2024-06-03 10:53 | XMS_ITS | Clinical Summary ---
Author Organization [facility] Address [address] [place] [address] Phone Care Team Providers Care Vocational Guidance Counselor Name Role Phone MARK MALDONADO MD Primary Care Provider [phone] Reason for Visit and Chief Complaint gynecologic annual exam - The Chief Complaint is: Annual Problems Includes: Problems addressed during this encounter and other active Problems All Visits Onset Date Resolved Date Provider Condition S tatus Osteopenia 01/11/2014 CYNDY MOLINA NP-BC Active Last Documented On 12/25/2019 10:40AM ; [facility] Note: DEXA done 12-22-2019 Tobacco Use 01/09/2013 CYNDY POTTS-BC Active Last Documented On 3 8:16AM ; [facility] Plan of Treatment - Referred to: GI - screeening colonoscopy - Last Documented On 02/08/2017 3:55PM ; [facility] - Follow-up visit 1 year or as needed - Last Documented On 02/08/2017 3:55PM ; [facility] - Clinical summary provided to patient - Last Documented On 02/08/2017 3:55PM ; [facility] - Transition in care, clinical summary provided - Last Documented On 02/08/2017 3:55PM ; [facility] Pending Tests Order Diagnosis Results Due Ordering P rovider Outside Procedures Colonoscopy Encounter for screening for malignant neoplasm of rectum 03/10/17 CYNDY POTTS-ROSA Last Documented On 8 3:50PM ; [facility] Radiology @ other - *MAMMOGRAPHY SCREENING MAMMOGRAM Encntr screen mammogram for malignant neoplasm of breast 06/21/17 CYNDY POTTS- Last Documented On 0 4:17PM ; [facility] Radiology @ other DEXA (to be scheduled) Ot disrd of bone density and structure, unspecified site 07/18/[address] [facility]- Last Documented On 0 12:49PM ; [facility] Instructions to patient Instructions for patient : B reast Self Exam discussed Last Documented On 7 3:25PM ; [facility] Lose weight Last Documented On 7 3:26PM ; [facility] Colonoscopy Handout given to patient Last Documented On 7 3:26PM ; [facility] Education and Decision Aids were provided during visit for: Patient Education: Daily mekhi cium and vitamin D Last Documented On 7 3:25PM ; [facility] Patient Education: weight be aring exercise Last Documented On 7 3:25PM ; [facility] Smoking cessation advised Last Documented On 7 3:26PM ; [facility] Assessments Includes: Assessments from this encounter Findings - NORMAL FEMALE EXAM - Last Documented On 02/08/2017 3:55PM ; [facility] - Screening Malig. Neoplasm Rectum - Last Documented On 02/08/2017 3:55PM ; [facility] Instructions Includes: Instructions from this encounter Instructions to patient Instructions for patient : B reast Self Exam discussed Last Documented On 7 3:25PM ; [facility] Lose weight Last Documented On 7 3:26PM ; [facility] Colonoscopy Handout given to patient Last Documented On 7 3:26PM ; [facility] Education and Decision Aids were provided during visit for: Patient Education: Daily mekhi cium and vitamin D Last Documented On 7 3:25PM ; [facility] Patient Education: weight be aring exercise Last Documented On 7 3:25PM ; [facility] Smoking cessation advised Last Documented On 7 3:26PM ; [facility] Medical Equipment - Implanted Devices Includes: Current Devices No Medical Equipment Recorded Medications Includes: Medications discussed during this encounter and other current Medications Discontinued / Stopped on this date CYNDY MOLINA [facility]- on 01/14/2015 Estrace 0.1 MG/GM Cream Provider: CHRIS MOLINA [facility]-BC Diagnosis: Postmenopausal a trophic vaginitis Last Documented On 02/08/2017 3:44PM By TIMOTEO ROSAS ; [facility] Medications Administered Includes: Administered Medications from this encounter No Administered Medications Recorded Vital Signs Includes: Vital Signs from this encounter Vital Name 02/08/2017 03:39P Blood Pressure Sitting L 120/70 BP Cuff Size Regular Height (in) 65 Weight (lb) 164 Body Mass Index (kg/m2) 27.3 Body Surface Area (m2) 1.8 Last Documented: On 02/08/2017 3:41PM ; [facility] Results Includes: Results discussed during this encounter No Results Recorded For Specified Dates History of Present Illness Includes: History of Present Illness from this encounter DALE DENNY is a 66 year old female. - Medication list reviewed - PRIMARY CARE PROVIDER : Dr Stokes Social History Description Last Updated Alcohol use occ 02/08/2017 Last Documented On 7 3:55PM ; [facility] Cigarette smoking 02/08/2017 Last Documented On 7 3:55PM ; [facility] In monogamous relationship 02/08/2017 Last Documented On 7 3:55PM ; [facility] Not using drugs 02/08/2017 Last Documented On 7 3:55PM ; [facility] Sexually active with 1 partners in the l ast year 02/08/2017 Last Documented On 7 3:55PM ; [facility] Social history unchanged 02/08/2017 Last Documented On 7 3:55PM ; [facility] Smoking status : Current some day smoker 02/08/2017 Last Documented On 7 3:55PM ; [facility] Procedures and Surgical History Includes: Procedures from this encounter Procedures Code Diagnosis Performing Provider Service L ocation Service Date low fat diet Last Documented On 7 3:26PM ; [facility] fecal occult blood test was negative 36118 Last Documented On 7 3:25PM ; [facility] normal history of Pap smear of cervix Last Documented On 7 3:43PM ; [facility] Cervical Pap Smear performed [id number] Last Documented On 7 3:26PM ; [facility] Surgical History Last Updated Surgical / procedural history rt Carpal Tunnel Surgery 01/11/2014 Last Documented On 7 3:35PM ; [facility] History of tubal ligation 01/09/2013 Last Documented On 7 3:35PM ; [facility] Medical History Includes: Medical History addressed during this encounter Description Last Updated History of a DEXA of the lat eral lumbar spine was performed 07/19/2015 osteopenia 02/08/2017 Last Documented On 7 3:55PM ; [facility] section 02/08/2017 Last Documented On 7 3:55PM ; [facility] No recent change in medical history 01/21 Last Documented On 7 3:55PM ; [facility] History of complete colonosc opy pt has never had one but will get one this year 02/08/2017 Last Documented On 7 3:55PM ; [facility] Sexually active 02/08/2017 Last Documented On 7 3:55PM ; [facility] History of Pap smear done 02/02/2016 Last Documented On 7 3:55PM ; [facility] History of screening mammogram was perfo rmed 07/21/2015 02/08/2017 Last Documented On 7 3:55PM ; [facility] Result: normal 02/08/2017 Last Documented On 7 3:55PM ; [facility] Result: normal 02/08/2017 Last Documented On 7 3:55PM ; [facility] LMP: 1993 03/27/2011 Last Documented On 7 3:35PM ; [facility] Status post tubal ligation 1985 03/27/20 11 Last Documented On 7 3:35PM ; [facility] 3 03/27/2011 Last Documented On 7 3:35PM ; [facility] Para 3 03/27/2011 Last Documented On 7 3:35PM ; [facility] History of menopause 03/24/2010 Last Documented On 7 3:35PM ; [facility] Family History Includes: Family History addressed during this encounter Description Last Updated Family history unchanged 02/08/2017 Last Documented On 7 3:55PM ; [facility] Maternal aunt's history of uterine cance r maternal aunt 02/08/2017 Last Documented On 7 3:55PM ; [facility] Maternal history of hypertension mother late in life 02/08/2017 Last Documented On 7 3:55PM ; [facility] father at age 85 pancreatic ca 4 Last Documented On 7 3:35PM ; [facility] Spouse name: Matt 01/09/2013 Last Documented On 7 3:35PM ; [facility] Family history of Cancer 06/27/2009 Last Documented On 7 3:35PM ; [facility] Family history of thyroid disease 2009 Last Documented On 7 3:35PM ; [facility] Review of Systems Includes: Review of Systems [...] Date Check-In Time Check-Out Time Diagnosis ANNUAL HOUSE PARENT 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 Neoplasm Rectum,Normal Female Exam Insurance Includes: Active Insurance Policies Plan Name Member ID Group # Subscriber Relationship Effect jeremiah Dates 1 - MEDICARE PART A CLAIMS/NGS [id number] ELVA Kraus 2 - [employer] [id number] PLAN G ELVA Kraus Clinical Notes Includes: Clinical Notes from this encounter No Clinical Notes Recorded
--- OUTSIDE RECORDS SUMMARY | 2024-06-03 10:53 | XMS_ITS ---
Care Plan - [facility] Created on: June 03, 2024 ELVA DENNY : 1950 Sex: Female Author Organization [facility] Address [address] [place] [address] Phone Care Team Providers Care Business Strategist Name Role Phone MARK MALDONADO MD Primary Care Provider [phone]
[2024-06-03 10:54] LABS: Hematocrit 38.2 % (37.0-47.0); Hemoglobin 12.4 g/dL (12.0-15.0)
[2024-06-03 11:04] LABS: Urine Cotinine NEGATIVE
[2024-06-03 11:05] LABS: Albumin Level 4.3 g/dL (3.5-5.1); Estimated Glomerular Filt Rate > 60
== END 2024-06-03 09:55 | disposition home or self-care (01) ==
PROVIDERS: PCP Physician Assistant Surgical; Visit Provider Orthopaedic Surgery
DX: M17.12 Unilateral primary osteoarthritis, left knee (principal); Z79.899 Other long term (current) drug therapy; I10 Essential (primary) hypertension; Z01.818 Encounter for other preprocedural examination
CPT/HCPCS: 80307; 82040; 82565; 85014; 85018; 93005

== ENCOUNTER 2024-10-14 09:59 | Outpatient (CLI) | payer MEDICARE, SELFPAY ==
[2024-10-14 11:18] LABS: Basophils Absolute Auto 0.1 K/mm3 (0.0-0.1); Basophils Percent Auto 0.8 % (0.2-1.2); Eosinophils Absolute Auto 0.3 K/mm3 (0-0.3); Eosinophils Percent Auto 3.7 % (0-4.4); Hematocrit 37.5 % (37.0-47.0); Hemoglobin 12.3 g/dL (12.0-15.0); Immature Granulocyte Absolute 0.02 K/mm3 (0.00-0.031); Immature Granulocyte Percent A 0.3 % (0-0.5); Lymphocytes Absolute Auto 2.54 K/mm3 (0.9-3.2); Lymphocytes Percent Auto 33.5 % (18.3-44.2); Mean Corpuscular HGB Conc 32.8 g/dl (32-36); Mean Corpuscular Hemoglobin 30.8 pg (26-34); Mean Platelet Volume 9.5 fl (7.4-10.4); Monocytes Absolute Auto 0.5 K/mm3 (0.1-0.6); Monocytes Percent Auto 6.2 % (2.6-8.5); Neutrophils Absolute Auto 4.2 K/mm3 (1.3-6.7); Neutrophils Percent Auto 55.5 % (45.5-73.1); Platelet Count Result 297 k/mm3 (150-375); Red Blood Count 3.99 M/mm3 (4.2-5.4); Red Cell Distribution Width 13.8 % (11.5-14.5); White Blood Count 7.6 K/mm3 (4.5-10.0)
[2024-10-14 11:27] LABS: Urine Cotinine NEGATIVE
[2024-10-14 11:55] LABS: Albumin Level 4.3 g/dL (3.5-5.1); Estimated Glomerular Filt Rate > 60; Glucose 103 mg/dL (65-110)
[2024-10-14 12:16] LABS: Hemoglobin A1C 5.3 % (<5.7)
[2024-10-14 12:44] LABS: MRSA (PCR) NOT DETECTED (NOT DETECTE)
== END 2024-10-14 10:00 | disposition home or self-care (01) ==
LOC: ANHSURGERY 10:06
PROVIDERS: PCP Physician Assistant; Visit Provider Orthopaedic Surgery
DX: M17.12 Unilateral primary osteoarthritis, left knee (principal); Z01.818 Encounter for other preprocedural examination
CPT/HCPCS: 80307; 82040; 82565; 82947; 83036; 85025; 87641